=== PATIENT | female | born 1985 | race Caucasian/White ===

== ENCOUNTER 2019-02-18 12:29 | Emergency (ER) | payer BC ==
--- OUTSIDE RECORDS SUMMARY | 2019-02-18 12:48 | XMS REPORT | Continuity of Care Document ---
:1985 External Reference #:[id number] Author Name Allyssa Sam PA Address [address] [facility] [place] [address] Care Team Providers Name Role Phone Allyssa Sam PA Care Team Information Obstetrics Gyn Unavailable Payers Date Identification Numbers Payment Provider Subscriber Policy Number: [id number] [employer] Ppo Nya Kearns PayID: [id number] [address] [address] [place] [id number] Effective: 2010 Policy Number: [id number] [employer] Nya Kearns Expires: 2015 PayID: [id number] [address] [address] [place] [phone] Problems Active Problems Provider Date Generalized anxiety disorder Jonatan Mclean DO Onset: 01/11/2012 Vitamin D deficiency Jonatan Mclean DO Onset: 01/09/2011 Intrinsic asthma without status asthmaticus Jonatan Mclean DO Onset: 01/09 Migraine with typical aura Jonatan Mclean DO Onset: 01/09/2011 Peptic reflux disease Jonatan Mclean DO Onset: 01/04/2015 Mild intermittent asthma Jonatan Mclean DO Onset: 12/07/2016 Mild intermittent asthma, uncomplicated Jonatan Mclean DO Onset: 2015 Family History Date Family Member(s) Observation Comments Father Unsure Mother Anxiety Mother TMJ Disorder Social History Type Date Description Comments Sex Unknown Marital Status Lives With Daughter 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 Tobacco Use Start: Unknown End: Former Cigarette Smoker 1-5 Unknown Cigarettes Daily ETOH Use Occasionally consumes alcohol Tobacco Use Start: Unknown End: Patient is a former smoker quit February 2015 Unknown Allergies, Adverse Reactions, Alerts Active Allergies Reaction Severity Comments Date Environmental 01/04/2015 IV Contrast 08/30/2015 Adhesives Very bad rash 07/02/2017 Inactive Allergies NKDA 11/25/2014 Medications Active Medications SIG Qnty Indications Ordering Date Provider Albuterol Sulfate HFA 2 puffs every 8.500gm J06.9 Ray Rios, 2018 4-6 hours as DO 108(90Base) mcg/Act needed for Aerosol cough, sob, wheezing Amoxicillin/Clavulanat 1 by mouth twice 14tabs J01.90 Ray Rios, e Potassium a day x 10 days DO 875-125mg Tablets Silenor One tablet by 30tabs F41.1 Ray Rios, 11/17/2018 3mg Tablets mouth once daily DO Paroxetine HCL take 1 tablet by 30tabs Ray Rios, 10/29/2018 20mg mouth daily DO Tablets Hydroxyzine HCL 1 by mouth every 90tabs Ray Rios, 10/01/2018 25mg 6-8 hours as DO Tablets needed Alprazolam take 1 tablet by 30tabs F41.1 Ray Rios, 09/03/2018 0.25mg Tablets mouth twice a DO day if needed for anxiety maximum daily dose of 2 Vitamin D3 Adult 2 by mouth every Ray Rios, 07/25/2018 Gummies day DO 1000Unit Chewtabs Hydrocortisone apply to rectal 120gm K64.8 Josue, 10/09/2016 Acetate/Pramoxine area three times Jonatan DO 2.5-1% a day x 14 days Cream Citracal Calcium+D 1-2 at night 60tabs Josue, 02/28/2016 Slow Release before sleep Jonatan, DO 313-37-100lj-mg-Unit Tablets ER 24HR Flintstones Complete 2 by mouth every OTC Josue, 09/19/2015 60mg day Jonatan, DO Chewtabs Vitamin B12 1 by mouth every Josue, 09/19/2015 500mcg day Jonatan, DO Tablets Tylenol Extra Strength one by mouth q6 Unknown hrs. as needed 500mg Tablets mdd - 3 grams per day History Medications Paroxetine HCL 1 by mouth every 30tabs Rios, 10/06/2018 - 20mg Tablets day Ray, DO 10/06/2018 Hydroxyzine HCL 1 by mouth every 60tabs Rios, 10/01/2018 - 25mg Tablets 6-8 hours as Ray, DO 10/01/2018 needed Sertraline HCL 2 by mouth every 60tabs F41.1 Rios, 09/17/2018 - 50mg Tablets day Ray, DO 10/29/2018 Sertraline HCL 2 by mouth every 30tabs F41.1 Rios, 09/03/2018 - 25mg Tablets day Ray, DO 09/17/2018 Duloxetine HCL 1 by mouth every 30caps F41.1 Rios, 08/07/2018 - 30mg Caps DR hai Bell, DO 08/09/2018 Part Buspirone HCL 1 tablet by 60tabs F41.1 Rios, 08/07/2018 - 7.5mg Tablets mouth twice a Ray, DO 09/17/2018 day as needed Azithromycin 2 by mouth on 6tabs R05 Digiovanblessing, 06/03/2018 - 250mg Tablets day 1 and 1 by LORENA Tian 06/08/2018 mouth day 2-5 Benzonatate 1 by mouth every 60caps R05 Digiovanna, 06/03/2018 - 200mg Capsules 8 hours as LORENA Tian 06/13/2018 needed for cough, may cause drowsiness Azithromycin 2 tablets by 6tabs J06.9 Rios, 07/26/2017 - 250mg Tablets mouth on day 1 Ray, DO 07/31/2017 then 1 tablet on days 2-5 Proair HFA 2 puffs every 8.500gm J06.9 Rios, 07/26/2017 - 108(90Base) mcg/Act 4-6 hours as DO Ray 01/21/2019 Aerosol needed for cough, sob, wheezing Benzonatate 1 by mouth three 30caps J06.9 Josue, 07/02/2017 - 200mg Capsules times a day Jonatan, DO 06/03/2018 Cymbalta 2 by mouth every 60caps F43.23 Josue, 04/17/2017 - 30mg Caps DR Yun Cheung, DO 06/03/2018 Meloxicam 1 by mouth every 30tabs M25.54 Josue, 10/09/2016 - 15mg Tablets day 2 DO Jonatan 04/17/2017 Cymbalta 1 by mouth every 90caps F43.23 Josue, 08/29/2016 - 30mg Caps DR Yun day DO Jonatan 04/17/2017 Benzonatate 1 by mouth every 30caps R05 Digiovanna, 07/31/2016 - 200mg Capsules 8 hours as Asmita, [employer] 08/29/2016 needed for cough, may cause drowsiness Escitalopram Oxalate 1 by mouth every 90tabs F43.23 Josue, 02/28/2016 - 20mg day DO Jonatan 08/29/2016 Tablets Nystatin-Triamcinolone apply to area 60gm R21 Josue, 11/28/2015 - twice a day X 4 DO Jonatan 02/28/2016 440316-5.1Unit/GM-% Cream Weeks Pepcid 1 by mouth two 90tabs Josue, 09/19/2015 - 20mg Tablets time daily. DO Jonatan 02/28/2016 Escitalopram Oxalate 1 by mouth every 90tabs F43.23 Josue, 09/19/2015 - 10mg day DO Jonatan 02/28/2016 Tablets Methylprednisolone Take 4MG Daily Lety, 06/22/2015 - 4mg Tablets Until 09/22/14. Venkata, 09/19/2015 Then Drop To 2MG MD X 2 Weeks Then Stop. Gabapentin take one capsule 30caps Josue, 05/20/2015 - 300mg Capsules by mouth once at DO Jonatan 06/09/2015 bedtime Ibuprofen 1 by mouth three 90tabs Josue, 05/16/2015 - 800mg Tablets times a day with DO Jonatan 06/09/2015 food Prednisone 1 by mouth twice 14tabs 729.5 Josue, 04/28/2015 - 20mg Tablets a day DO Jonatan 05/16/2015 Furosemide 1 by mouth every 30tabs 782.3 Josue, 04/21/2015 - 20mg Tablets day DO Jonatan 05/31/2015 Klor-Con M20 1 by g-tube 30tabs 782.3 Josue, 04/21/2015 - 20Meq Tablets ER twice a day Jonatan, DO 05/31/2015 Azithromycin 1 by mouth every 7tabs 466.0 Josue, 09/14/2014 - 500mg Tablets day Jonatan, DO 11/25/2014 Robitussin ac 2 teaspoon by QS 466.0 Josue, 09/14/2014 - mouth every 4 Jonatan, DO 11/25/2014 hours as needed X 5 days Benzonatate 1 by mouth three 30caps Josue, 08/23/2014 - 200mg Capsules times a day Jonatan, DO 11/25/2014 Ventolin HFA 2 puffs by mouth 1units Josue, 08/23/2014 - 108mcg/Act Aerosol every 4 hours as Jonatan DO 02/28/2016 needed Sumatriptan Succinate 1 qd prn 10tabs Josue, 09/28/2013 - 100mg migraine repeat Jonatan DO 11/25/2014 Tablets 2 hrs prn [facility] Vitamin D 1 po qd 30caps Josue, 01/09/2011 - 2000Unit Capsules Jonatan, DO 06/09/2015 Metoprolol 1 by mouth twice Unknown - 25mg a day 02/28/2016 Omeprazole 1 by mouth Unknown - 10mg Capsules DR morning and 06/03/2018 night Immunizations CPT Code Status Date Vaccine Lot # [id number] Given 05/16/2018 Afluria Or Fluvirin Flu Vac Intramuscular 24040 Given 02/25/2014 Tdap (Adacel) Ages 7 And Above Only Vital Signs Date Vital Result Comment 01/21/2019 3:46pm Body Temperature 98.6 F Weight 251.00 lb Heart Rate 80 /min BP Systolic 132 mmHg BP Diastolic 72 mmHg Respiratory Rate 18 /min Height 67.5 inches 5'7.50" O2 % BldC Oximetry 95 % BMI (Body Mass Index) 38.7 kg/m2 11/17/2018 8:01am Weight 255.00 lb Heart Rate 68 /min BP Systolic 128 mmHg BP Diastolic 80 mmHg Respiratory Rate 18 /min Height 67.5 inches 5'7.50" BMI (Body Mass Index) 39.3 kg/m2 10/29/2018 7:58am Weight 248.00 lb Heart Rate 72 /min BP Systolic 124 mmHg BP Diastolic 80 mmHg Respiratory Rate 18 /min Height 67.5 inches 5'7.50" BMI (Body Mass Index) 38.3 kg/m2 10/01/2018 8:03am Weight 252.00 lb Heart Rate 72 /min BP Systolic 118 mmHg BP Diastolic 80 mmHg Respiratory Rate 18 /min Height 67.5 inches 5'7.50" BMI (Body Mass Index) 38.9 kg/m2 09/17/2018 9:35am Weight 248.00 lb Heart Rate 72 /min BP Systolic 132 mmHg BP Diastolic 72 mmHg Respiratory Rate 18 /min Height 67.5 inches 5'7.50" BMI (Body Mass Index) 38.3 kg/m2 09/03/2018 10:31am Weight 250.00 lb Heart Rate 84 /min BP Systolic 130 mmHg BP Diastolic 70 mmHg Respiratory Rate 18 /min Height 67.5 inches 5'7.50" BMI (Body Mass Index) 38.6 kg/m2 08/07/2018 11:04am Weight 250.00 lb BP Systolic 130 mmHg BP Diastolic 80 mmHg Height 67.5 inches 5'7.50" BMI (Body Mass Index) 38.6 kg/m2 07/25/2018 2:43pm Body Temperature 98.6 F Weight 245.00 lb Heart Rate 72 /min BP Systolic 130 mmHg BP Diastolic 72 mmHg Respiratory Rate 18 /min Height 67.5 inches 5'7.50" BMI (Body Mass Index) 37.8 kg/m2 06/03/2018 11:27am Body Temperature 99.0 F tympanic Weight 242.19 lb Heart Rate 80 /min BP Systolic 134 mmHg BP Diastolic 80 mmHg Respiratory Rate 18 /min Height 66.75 inches 5'6.75" (08/29/16) O2 % BldC Oximetry 96 % Room Air BMI (Body Mass Index) 38.2 kg/m2 07/26/2017 3:17pm Body Temperature 98.6 F Weight 227.00 lb Heart Rate 84 /min BP Systolic 124 mmHg BP Diastolic 80 mmHg Respiratory Rate 18 /min Height 66.75 inches 5'6.75" (08/29/16) O2 % BldC Oximetry 97 % BMI (Body Mass Index) 35.8 kg/m2 07/02/2017 9:23am Body Temperature 97.6 F Weight 228.38 lb Heart Rate 80 /min BP Systolic 112 mmHg BP Diastolic 76 mmHg Respiratory Rate 18 /min Height 66.75 inches 5'6.75" (08/29/16) O2 % BldC Oximetry 97 % On room air BMI (Body Mass Index) 36.0 kg/m2 04/17/2017 9:40am Weight 231.00 lb Heart Rate 76 /min BP Systolic 120 mmHg BP Diastolic 80 mmHg Respiratory Rate 18 /min Height 66.75 inches 5'6.75" (08/29/16) BMI (Body Mass Index) 36.4 kg/m2 10/09/2016 7:58am Weight 237.00 lb Heart Rate 78 /min BP Systolic 114 mmHg BP Diastolic 70 mmHg Respiratory Rate 18 /min Height 66.75 inches 5'6.75" (08/29/16) BMI (Body Mass Index) 37.4 kg/m2 08/29/2016 11:25am Weight 236.38 lb Heart Rate 78 /min 80 Reg BP Systolic 110 mmHg BP Diastolic 70 mmHg BP Systolic Recheck 110 mmHg BP Diastolic Recheck 72 mmHg Respiratory Rate 18 /min Height 66.75 inches 5'6.75" (08/29/16) BMI (Body Mass Index) 37.3 kg/m2 07/31/2016 1:33pm Body Temperature 99.1 F Weight 247.00 lb Heart Rate 98 /min BP Systolic 122 mmHg BP Diastolic 74 mmHg Respiratory Rate 18 /min O2 % BldC Oximetry 98 % Ra 02/28/2016 3:22pm Weight 271.00 lb Heart Rate 78 /min BP Systolic 130 mmHg BP Diastolic 80 mmHg Respiratory Rate 18 /min 11/28/2015 2:47pm Weight 304.00 lb Heart Rate 78 /min BP Systolic 118 mmHg BP Diastolic 82 mmHg Respiratory Rate 18 /min 09/19/2015 8:09am Weight 336.00 lb Heart Rate 66 /min 72 Reg BP Systolic 140 mmHg BP Diastolic 90 mmHg BP Systolic Recheck 130 mmHg BP Diastolic Recheck 82 mmHg Respiratory Rate 24 /min 08/30/2015 9:05am Weight 362.00 lb Heart Rate 72 /min 72 Reg BP Systolic 112 mmHg Lower LEFT Arm BP Diastolic 62 mmHg Lower LEFT Arm BP Systolic Recheck 124 mmHg BP Diastolic Recheck 80 mmHg Respiratory Rate 24 /min Height 67.75 inches 5'7.75" BMI (Body Mass Index) 55.4 kg/m2 08/05/2015 9:27am Weight 358.00 lb Heart Rate 72 /min 72 Reg BP Systolic 118 mmHg BP Diastolic 62 mmHg BP Systolic Recheck 126 mmHg BP Diastolic Recheck 78 mmHg Height 68 inches 5'8" (04/2015) BMI (Body Mass Index) 54.4 kg/m2 07/08/2015 8:44am Weight 353.00 lb Heart Rate 88 /min BP Systolic 128 mmHg L/LG BP Diastolic 80 mmHg L/LG Respiratory Rate 18 /min Height 68 inches 5'8" BMI (Body Mass Index) 53.7 kg/m2 05/31/2015 9:29am Weight 344.00 lb Heart Rate 78 /min BP Systolic 130 mmHg BP Diastolic 82 mmHg Respiratory Rate 18 /min 05/05/2015 9:00am Weight 348.00 lb Heart Rate 72 /min BP Systolic 130 mmHg BP Diastolic 90 mmHg Respiratory Rate 18 /min Height 68 inches 5'8" BMI (Body Mass Index) 52.9 kg/m2 04/28/2015 10:05am Weight 339.00 lb 04/21/2015 3:05pm Weight 346.00 lb Heart Rate 78 /min 72 Reg BP Systolic 130 mmHg BP Diastolic 80 mmHg Respiratory Rate 24 /min Height 67.75 inches 5'7.75" BMI (Body Mass Index) 53.0 kg/m2 04/05/2015 9:46am Weight 348.00 lb Heart Rate 72 /min BP Systolic 110 mmHg BP Diastolic 70 mmHg Respiratory Rate 24 /min Height 67.75 inches 5'7.75" BMI (Body Mass Index) 53.3 kg/m2 01/10/2015 1:24pm Weight 346.00 lb Heart Rate 96 /min BP Systolic 126 mmHg BP Diastolic 68 mmHg Respiratory Rate 30 /min Height 67.5 inches 5'7.50" BMI (Body Mass Index) 53.4 kg/m2 11/25/2014 1:07pm Body Temperature 98.5 F Weight 350.00 lb Heart Rate 76 /min BP Systolic 126 mmHg BP Diastolic 72 mmHg Respiratory Rate 20 /min Height 67.5 inches 5'7.50" BMI (Body Mass Index) 54.0 kg/m2 09/14/2014 3:59pm Body Temperature 98.8 F Weight 341.00 lb Heart Rate 66 /min BP Systolic 112 mmHg BP Diastolic 80 mmHg Respiratory Rate 24 /min Height 67.5 inches 5'7.50" O2 % BldC Oximetry 97 % Ra BMI (Body Mass Index) 52.6 kg/m2 08/23/2014 9:45am Body Temperature 98.7 F Weight 320.00 lb Per PT Heart Rate 66 /min BP Systolic 120 mmHg BP Diastolic 80 mmHg Respiratory Rate 24 /min Height 67.75 inches 5'7.75" O2 % BldC Oximetry 97 % Ra 05/03/2014 10:37am Weight 334.00 lb Height 67.75 inches 5'7.75" 05/03/2014 10:38am BP Systolic 128 mmHg BP Diastolic 72 mmHg 05/03/2014 10:38am Heart Rate 78 /min 72 Reg BP Systolic 128 mmHg BP Diastolic 72 mmHg Respiratory Rate 18 /min 04/28/2014 2:41pm Weight 331.00 lb Heart Rate 92 /min BP Systolic 140 mmHg BP Diastolic 80 mmHg Respiratory Rate 18 /min Height 68 inches 5'8" Done On 04/28/14 02/25/2014 9:56am Body Temperature 98.2 F Weight 326.00 lb Heart Rate 90 /min BP Systolic 144 mmHg BP Diastolic 86 mmHg Respiratory Rate 18 /min 02/04/2014 9:49am Weight 332.00 lb Heart Rate 70 /min BP Systolic 134 mmHg BP Diastolic 80 mmHg Respiratory Rate 18 /min Height 67 inches 5'7" 02/01/2014 9:52am Body Temperature 98.9 F Weight 336.00 lb Heart Rate 76 /min BP Systolic 148 mmHg BP Diastolic 78 mmHg Respiratory Rate 18 /min Height 67 inches 5'7" 01/28/2013 3:02pm Weight 334.00 lb Heart Rate 70 /min BP Systolic 138 mmHg BP Diastolic 78 mmHg Respiratory Rate 18 /min 02/25/2012 10:42am Body Temperature 97.8 F Weight 343.00 lb Heart Rate 104 /min BP Systolic 138 mmHg BP Diastolic 76 mmHg Respiratory Rate 19 /min Height 67.25 inches 5'7.25"/ O2 % BldC Oximetry 96 % 01/11/2012 4:20pm BP Systolic 130 mmHg BP Diastolic 80 mmHg 01/11/2012 4:20pm Weight 342.00 lb Heart Rate 78 /min BP Systolic 138 mmHg BP Diastolic 90 mmHg Respiratory Rate 24 /min Height 67.25 inches 5'7.25" 11/28/2011 9:09am Body Temperature 98.5 F Weight 330.00 lb Heart Rate 74 /min BP Systolic 130 mmHg BP Diastolic 80 mmHg Respiratory Rate 18 /min Height 68.25 inches 5'8.25" O2 % BldC Oximetry 95 % 11/26/2011 1:14pm Body Temperature 98.7 F Weight 334.00 lb Heart Rate 106 /min BP Systolic 134 mmHg BP Diastolic 82 mmHg Respiratory Rate 22 /min Height 68.25 inches 5'8.25" O2 % BldC Oximetry 94 % 10/24/2011 2:28pm Body Temperature 98.8 F Weight 342.00 lb Heart Rate 90 /min BP Systolic 136 mmHg BP Diastolic 76 mmHg Respiratory Rate 20 /min Height 67.75 inches 5'7.75" 07/04/2011 4:25pm Weight 324.00 lb Heart Rate 87 /min BP Systolic 152 mmHg BP Diastolic 94 mmHg Respiratory Rate 19 /min Height 67.75 inches 5'7.75" 04/23/2011 10:20am Body Temperature 98.9 F Weight 321.00 lb Heart Rate 91 /min BP Systolic 112 mmHg BP Diastolic 86 mmHg Respiratory Rate 18 /min Height 67.75 inches 5'7.75" 04/16/2011 10:19am Body Temperature 98.7 F Weight 328.00 lb Heart Rate 72 /min BP Systolic 140 mmHg BP Diastolic 90 mmHg Height 67.75 inches 5'7.75" 03/29/11 O2 % BldC Oximetry 96 % 03/29/2011 4:07pm Weight 330.00 lb Heart Rate 84 /min BP Systolic 142 mmHg BP Diastolic 62 mmHg Respiratory Rate 18 /min Height 67.75 inches 5'7.75" 01/09/2011 3:39pm BP Systolic 132 mmHg BP Diastolic 82 mmHg 01/09/2011 3:39pm Weight 323.00 lb Heart Rate 78 /min 80 Reg BP Systolic 148 mmHg BP Diastolic 82 mmHg Respiratory Rate 24 /min Height 67.5 inches 5'7.50" 11/11/2009 10:50am Weight 339.00 lb Heart Rate 86 /min BP Systolic 136 mmHg BP Diastolic 78 mmHg Respiratory Rate 17 /min 10/05/2009 11:32am Body Temperature 98.6 F Weight 335.00 lb Heart Rate 96 /min BP Systolic 124 mmHg BP Diastolic 88 mmHg Respiratory Rate 30 /min O2 % BldC Oximetry 95 % On Room Air. 08/02/2009 1:32pm Weight 335.00 lb Heart Rate 90 /min BP Systolic 122 mmHg BP Diastolic 90 mmHg Respiratory Rate 17 /min 07/12/2009 1:01pm Body Temperature 98.0 F Weight 324.00 lb Heart Rate 102 /min BP Systolic 138 mmHg RIGHT BP Diastolic 96 mmHg RIGHT Respiratory Rate 16 /min O2 % BldC Oximetry 95 % rm air 03/14/2009 2:08pm Weight 345.00 lb Heart Rate 78 /min BP Systolic 118 mmHg BP Diastolic 80 mmHg Respiratory Rate 18 /min 03/03/2009 9:34am Body Temperature 98.7 F Weight 340.00 lb Heart Rate 76 /min BP Systolic 134 mmHg RIGHT BP Diastolic 82 mmHg RIGHT Respiratory Rate 16 /min 12/24/2008 9:37am Body Temperature 98.0 F Weight 346.00 lb Heart Rate 84 /min BP Systolic 128 mmHg BP Diastolic 86 mmHg Respiratory Rate 24 /min 12/17/2008 1:55pm Weight 346.00 lb Heart Rate 78 /min BP Systolic 142 mmHg BP Diastolic 70 mmHg Respiratory Rate 18 /min Height 67.5 inches 5'7.50" Results Test Date Facility Test Result H/L Range Note Laboratory test finding 09/03/2018 [facility] TSH 1.75 uIU/mL 0.35-4.94 CBC with Auto Diff-fcmg 09/03/2018 [facility] WBC 7.8 K/uL 4.1-11.0 RBC 5.60 M/uL High 4.00-5.40 Hemoglobin 17.1 gm/dL High 12.0-16.0 Hematocrit 51.5 % High 36.0-47.0 MCV 92.1 fL 80.0-97.0 MCH 30.6 pg 27.0-32.0 MCHC 33.2 g/dL 32.0-36.0 RDW 13.3 % 11.5-14.5 PLT Count 160 K/ul 140-400 MPV 8.4 FL 7.1-10.7 Neutrophil 69.7 % 35.0-75.0 Lymphocyte 21.2 % 16.0-52.0 Monocyte 7.1 % 2.0-10.0 Eosinophil 1.3 % 0.0-5.0 Basophil 0.7 % 0.0-4.0 Abs Neutrophils 5.4 K/uL 2.1-8.0 Abs Lymphocytes 1.7 K/uL 0.8-5.5 Abs Monocytes 0.6 K/uL 0.1-1.0 Abs Eosinophils 0.1 K/uL 0.0-0.5 Abs Basophils 0.1 K/uL 0.0-0.3 Ua RFX Micro & 05/11/2018 [facility] Urine Color YELLOW Yellow 1 Culture II (315)- - Urine Clarity CLEAR Clear Urine Glucose - Dipstick NEGATIVE mg/dL Negative Urine Bilirubin - Dipstick NEGATIVE Negative Urine Ketone NEGATIVE mg/dL Negative Urine Specific [place] 1.010 N 1.010-1.030 Urine Blood NEGATIVE Negative Urine PH 6.0 Low 6.5-7.5 Urine Protein - Dipstick NEGATIVE mg/dL Negative Urine Urobilinogen - Dipstick 0.2 E.U./dL N 0.2-1.0 Urine Nitrite - Dipstick NEGATIVE Negative Urine Leuk Esterase NEGATIVE Negative Source: URINE, CLEAN CAT <SEE NOTE> 2 CBS W/Automated Diff 05/11/2018 [facility] White Blood 5.9 K/uL N 3.1-10.7 (315)- - Count Red Blood Count 4.68 M/uL N 3.90-5.40 Hemoglobin 14.4 gm/dL N 11.6-15.8 Hematocrit 42.7 % N 36.0-46.1 Mean Cell Volume 91.2 fl N 80.9-99.0 Mean Corpuscular HGB 30.8 pg N 25.9-32.7 Mean Corpuscular HGB Conc 33.7 g/dL N 30.8-34.3 Platelet Count 349 K/uL N 155-360 Red Cell Distri Width SD 40.7 fl N 3-47 Red Cell Distri Width %CV 12.5 % N 11.7-14.4 Mean Platelet Volume 8.8 fL Low 8.9-12.4 Neut% 61.8 % N 40.4-72.8 Lymph % 25.8 % N 20.0-42.0 Yancey % 9.3 % N 4.3-13.2 Eo% 2.4 % N 0.0-6.6 Bas% 0.7 % N 0.0-1.1 Neut# 3.68 K/uL N 1.8-7.0 Lymph # 1.53 K/uL N 1.0-4.0 Yancey # 0.55 K/uL N 0.3-0.9 Eos # 0.14 K/uL N 0.0-0.5 Baso # 0.04 K/uL N 0.0-0.1 Comprehensive Metabolic 05/11/2018 [facility] Glucose 94 mg/dL N 74-106 Panel (315)- - BUN 13 mg/dL N 7-18 Creatinine 0.6 mg/dL N 0.6-1.3 Glom Filtration Rate, Estimate >60 mL/min >60 If >60 mL/min >60 3 BUN/Creat 21.6 ratio Sodium 142 mmol/L N 136-145 Potassium 4.5 mmol/L N 3.5-5.1 Chloride 108 mmol/L High 98-107 Carbon Dioxide 24 mmol/L N 21-32 Anion Gap 10 mEq/L N 8-16 Calcium 8.4 mg/dL Low 8.5-10.1 Total Protein 7.1 g/dL N 6.4-8.2 Albumin 3.3 g/dL Low 3.4-5.0 Globulin 3.8 g/dL N 1.9-4.3 Alb/Glob 0.9 ratio Bilirubin,Total 0.3 mg/dL N 0.2-1.0 Sgot/Ast 15 U/L N 15-37 SGPT/Alt 21 U/L N 12-78 Alkaline Phosphatase 88 U/L N 45-117 Laboratory test finding 05/11/2018 [facility] Lipase 130 U/L N 56-289 (315)- - HCG,Serum (Qualitative) NEGATIVE (Negative) 4 [facility]L 4.1-11.0 RBC 4.48 M/uL 4.00-5.40 Hemoglobin 14.0 gm/dL 12.0-16.0 Hematocrit 40.9 % 36.0-47.0 MCV 91.2 fL 80.0-97.0 MCH 31.2 pg 27.0-32.0 MCHC 34.2 g/dL 32.0-36.0 RDW 13.0 % 11.5-14.5 PLT Count 340 K/ul 140-400 MPV 7.4 FL 7.1-10.7 Neutrophil 59.4 % 35.0-75.0 Lymphocyte 27.3 % 16.0-52.0 Monocyte 9.9 % 2.0-10.0 Eosinophil 2.6 % 0.0-5.0 Basophil 0.8 % 0.0-4.0 Abs Neutrophils 3.3 K/uL 2.1-8.0 Abs Lymphocytes 1.5 K/uL 0.8-5.5 Abs Monocytes 0.6 K/uL 0.1-1.0 Abs Eosinophils 0.1 K/uL 0.0-0.5 Abs Basophils 0.0 K/uL 0.0-0.3 Laboratory test 07/02/2017 [facility] Monospot Negative Negative finding C.Difficile 04/30/2017 [facility] C.Difficile (SEE NOTE) 5, 6 Cytotoxin (B) (315)- - Cytotoxin (B) CBC With Auto 04/23/2017 [facility] WBC 5.7 K/uL 4.1-11.0 Diff RBC 4.88 M/uL 4.00-5.40 Hemoglobin 14.8 gm/dL 12.0-16.0 Hematocrit 44.8 % 36.0-47.0 MCV 91.8 fL 80.0-97.0 MCH 30.3 pg 27.0-32.0 MCHC 33.1 g/dL 32.0-36.0 RDW 13.0 % 11.5-14.5 PLT Count 394 K/ul 140-400 Neutrophil 63.7 % 35.0-75.0 Lymphocyte 23.5 % 16.0-52.0 Monocyte 9.4 % 2.0-10.0 Eosinophil 2.5 % 0.0-5.0 Basophil 0.9 % 0.0-4.0 Abs Neutrophils 3.6 K/uL 2.1-8.0 Abs Lymphocytes 1.3 K/uL 0.8-5.5 Abs Monocytes 0.5 K/uL 0.1-1.0 Abs Eosinophils 0.1 K/uL 0.0-0.5 Abs Basophils 0.1 K/uL 0.0-0.3 Comprehensive Met Panel-FCMG 04/23/2017 [facility] Sodium 140 mmol/L 135- 146 7 Potassium 4.5 mmol/L 3.5-5.2 Chloride# 107 mmol/L 97-110 8 Carbon Dioxide 23 mmol/L Low 24-34 Glucose 67 mg/dL Low 70-105 BUN 10 mg/dL 6-26 Creatinine 0.6 mg/dL 0.5-1.4 Calcium 9.2 mg/dL 8.5-10.2 Total Protein 6.6 g/dL 6.0-8.0 Albumin 4.0 g/dL 3.6-4.9 Globulin 2.6 g/dL 2.0-3.5 A/G Ratio 1.5 Ratio 1.0-2.2 Total Bilirubin 0.4 mg/dL 0.1-1.3 Alkaline Phosphatase 93 U/L 24-140 Alt 24 U/L 3-42 Ast 15 U/L 8-42 Dawn Egfr >60 >60 9 Non Dawn Egfr >60 >60 10 Anion Gap 10 mmol/L 7-16 11 Laboratory test 04/16/2017 [facility] Lipase 133 U/L N 73-393 12, 13 finding (315)- - Comprehensive 04/16/2017 [facility] Glucose 91 mg/dL N 74-106 Metabolic Panel (315)- - BUN 13 mg/dL N 7-18 Creatinine 0.9 mg/dL N 0.6-1.3 Glom Filtration Rate, Estimate >60 mL/min >60 If >60 mL/min >60 14 BUN/Creat 14.4 ratio Sodium 144 mmol/L N 136-145 Potassium 4.5 mmol/L N 3.5-5.1 Chloride 109 mmol/L High 98-107 Carbon Dioxide 30 mmol/L N 21-32 Anion Gap 5 mEq/L Low 8-16 Calcium 8.3 mg/dL Low 8.5-10.1 Total Protein 6.0 g/dL Low 6.4-8.2 Albumin 2.9 g/dL Low 3.4-5.0 Globulin 3.1 g/dL N 1.9-4.3 Alb/Glob 0.9 ratio Bilirubin,Total 0.4 mg/dL N 0.2-1.0 Sgot/Ast 222 U/L High 15-37 SGPT/Alt 137 U/L High 12-78 Alkaline Phosphatase 131 U/L High 45-117 CBC 04/16/2017 [facility] White Blood Count 6.3 K/uL N 3.1-10.7 (315)- - Red Blood Count 3.99 M/uL N 3.90-5.40 Hemoglobin 12.3 gm/dL N 11.6-15.8 Hematocrit 37.7 % 36.0-46.1 Mean Cell Volume 94.5 fl N 80.9-99.0 Mean Corpuscular HGB 30.8 pg N 25.9-32.7 Mean Corpuscular HGB Conc 32.6 g/dL N 30.8-34.3 Platelet Count 294 K/uL N 150-400 Red Cell Distri Width %CV 13.1 % N 11.7-14.4 Mean Platelet Volume 9.8 fL N 8.9-12.4 CBC 04/15/2017 [facility] White Blood Count 8.3 K/uL N 3.1-10.7 (315)- - Red Blood Count 4.60 M/uL N 3.90-5.40 Hemoglobin 14.2 gm/dL N 11.6-15.8 Hematocrit 42.1 % N 36.0-46.1 Mean Cell Volume 91.5 fl N 80.9-99.0 Mean Corpuscular HGB 30.9 pg N 25.9-32.7 Mean Corpuscular HGB Conc 33.7 g/dL N 30.8-34.3 Platelet Count 327 K/uL N 150-400 Red Cell Distri Width %CV 13.0 % N 11.7-14.4 Mean Platelet Volume 9.8 fL N 8.9-12.4 Basic Metabolic Panel 04/15/2017 [facility] Glucose 115 mg/dL High 74-106 (315)- - BUN 9 mg/dL N 7-18 Creatinine 0.8 mg/dL N 0.6-1.3 Glom Filtration Rate, Estimate >60 mL/min >60 If >60 mL/min >60 15 BUN/Creat 11.2 ratio Sodium 141 mmol/L N 136-145 Potassium 4.4 mmol/L N 3.5-5.1 Chloride 107 mmol/L N 98-107 Carbon Dioxide 27 mmol/L N 21-32 Anion Gap 7 mEq/L Low 8-16 Calcium 8.8 mg/dL N 8.5-10.1 CBS W/Automated Diff 04/14/2017 [facility] White Blood 6.4 K/uL N 3.1-10.7 16 (315)- - Count Red Blood Count 4.91 M/uL N 3.90-5.40 Hemoglobin 15.2 gm/dL N 11.6-15.8 Hematocrit 44.6 % N 36.0-46.1 Mean Cell Volume 90.8 fl N 80.9-99.0 Mean Corpuscular HGB 31.0 pg N 25.9-32.7 Mean Corpuscular HGB Conc 34.1 g/dL N 30.8-34.3 Platelet Count 345 K/uL N 150-400 Red Cell Distri Width SD 42.0 fl N 3-47 Red Cell Distri Width %CV 13.0 % N 11.7-14.4 Mean Platelet Volume 9.3 fL N 8.9-12.4 Neut% 66.0 % N 40.4-72.8 Lymph % 23.2 % N 20.0-42.0 Yancey % 7.8 % N 4.3-13.2 Eo% 2.5 % N 0.0-6.6 Bas% 0.5 % N 0.0-1.1 Neut# 4.22 K/uL N 1.8-7.0 Lymph # 1.48 K/uL N 1.0-4.0 Yancey # 0.50 K/uL N 0.3-0.9 Eos # 0.16 K/uL N 0.0-0.5 Baso # 0.03 K/uL N 0.0-0.1 Ua RFX Micro & 04/14/2017 [facility] Urine Color YELLOW Yellow Culture II (315)- - Urine Clarity CLEAR Clear Urine Glucose - Dipstick NEGATIVE mg/dL Negative Urine Bilirubin - Dipstick NEGATIVE Negative Urine Ketone TRACE mg/dL High Negative Urine Specific [place] >=1.030 N 1.010-1.030 Urine Blood NEGATIVE Negative Urine PH 6.0 Low 6.5-7.5 Urine Protein - Dipstick NEGATIVE mg/dL Negative Urine Urobilinogen - Dipstick 0.2 E.U./dL N 0.2-1.0 Urine Nitrite - Dipstick NEGATIVE Negative Urine Leuk Esterase NEGATIVE Negative Source: URINE, CLEAN CAT <SEE NOTE> 17 Comprehensive Metabolic 04/14/2017 [facility] Glucose 84 mg/dL N 74-106 Panel (315)- - BUN 12 mg/dL N 7-18 Creatinine 0.8 mg/dL N 0.6-1.3 Glom Filtration Rate, Estimate >60 mL/min >60 If >60 mL/min >60 18 BUN/Creat 15.0 ratio Sodium 141 mmol/L N 136-145 Potassium 4.1 mmol/L N 3.5-5.1 Chloride 109 mmol/L High 98-107 Carbon Dioxide 26 mmol/L N 21-32 Anion Gap 6 mEq/L Low 8-16 Calcium 8.9 mg/dL N 8.5-10.1 Total Protein 7.2 g/dL N 6.4-8.2 Albumin 3.4 g/dL N 3.4-5.0 Globulin 3.8 g/dL N 1.9-4.3 Alb/Glob 0.9 ratio Bilirubin,Total 0.5 mg/dL N 0.2-1.0 Sgot/Ast 12 U/L Low 15-37 19 SGPT/Alt 21 U/L N 12-78 Alkaline Phosphatase 110 U/L N 45-117 Laboratory test finding 04/14/2017 [facility] Lipase 155 U/L N 73-393 (315)- - HCG,Serum (Qualitative) NEGATIVE (Negative) 20 Laboratory test 01/28/2017 [facility] Treponema Negative Negative 21 finding (315)- - Antibody U[place] Hepatitis 01/28/2017 [facility] Hepatitis A Negative Negative Evaluation (315)- - Antibody IgM HBsAg Screen [Ref Lab] Negative Negative Hepatitis B Core IgM Negative Negative Signal/Cutoff ratio < 0.1 s/corat 0.0-0.9 22 Laboratory test finding 09/07/2016 [facility] Magnesium 2.0 mg/dL 1.5-2.7 Phosphorus 4.1 mg/dL 2.5-5.0 Vitamin B12 651 pg/mL 180-914 Folate >24.0 ng/ml 5.9-24.8 Iron Panel 09/07/2016 [facility] Iron, Total 73 g/dL 50-170 Transferrin 276.0 mg/dL 203.0-362.0 Tibc (calc) 386 g/dL 261-478 % Iron Saturation 18.9 % 13.0-45.0 Laboratory test finding 09/07/2016 [facility] Ferritin 122.8 ng/ml 11.0- 306.0 Hemoglobin A1c 5.4 % 4.1-5.9 Comprehensive Metabolic (CMP) 09/07/2016 [facility] Sodium 136 mmol/L 134- 142 Potassium 4.3 mmol/L 3.5-5.2 Chloride 105 mmol/L 97-109 Carbon Dioxide 27 mmol/L 24-34 Glucose 84 mg/dL 70-105 BUN 19 mg/dL 6-26 Creatinine 0.7 mg/dL 0.5-1.4 Calcium 9.4 mg/dL 8.5-10.2 Total Protein 7.0 g/dL 6.0-8.0 Albumin 4.1 g/dL 3.6-4.9 Globulin 2.9 g/dL 2.0-3.5 A/G Ratio 1.4 Ratio 1.0-2.2 Total Bilirubin 0.3 mg/dL 0.1-1.3 Alkaline Phosphatase 88 U/L 24-140 Alt 15 U/L 3-42 Ast 15 U/L 8-42 Anion Gap 8 mmol/L 6-14 Dawn Egfr >60 >60 23 Non Dawn Egfr >60 >60 24 CBC With Auto Diff 09/07/2016 [facility] WBC 8.1 K/uL 4.1-11.0 RBC 5.05 M/uL 4.00-5.40 Hemoglobin 15.0 gm/dL 12.0-16.0 Hematocrit 45.5 % 36.0-47.0 MCV 90.1 fL 80.0-97.0 MCH 29.7 pg 27.0-32.0 MCHC 32.9 g/dL 32.0-36.0 RDW 13.3 % 11.5-14.5 PLT Count 371 K/ul 140-400 Neutrophil 71.9 % 35.0-75.0 Lymphocyte 19.2 % 16.0-52.0 Monocyte 6.4 % 2.0-10.0 Eosinophil 1.7 % 0.0-5.0 Basophil 0.8 % 0.0-4.0 Abs Neutrophils 5.8 K/uL 2.1-8.0 Abs Lymphocytes 1.5 K/uL 0.8-5.5 Abs Monocytes 0.5 K/uL 0.1-1.0 Abs Eosinophils 0.1 K/uL 0.0-0.5 Abs Basophils 0.1 K/uL 0.0-0.3 Laboratory test finding 07/06/2016 [facility] Ferritin 91.9 ng/ml 11.0- 306.0 Iron Panel 07/06/2016 [facility] Iron, Total 84 g/dL 50-170 Transferrin 249.8 mg/dL 203.0-362.0 Tibc (calc) 350 g/dL 261-478 % Iron Saturation 24.0 % 13.0-45.0 Laboratory test finding 07/06/2016 [facility] Vitamin B12 549 pg/mL 180- 914 CBC With Auto Diff 02/28/2016 [facility] WBC 6.5 K/uL 4.1-11.0 RBC 4.87 M/uL 4.00-5.40 Hemoglobin 14.4 gm/dL 12.0-16.0 Hematocrit 42.7 % 36.0-47.0 MCV 87.7 fL 80.0-97.0 MCH 29.6 pg 27.0-32.0 MCHC 33.8 g/dL 32.0-36.0 RDW 13.4 % 11.5-14.5 PLT Count 341 K/ul 140-400 Neutrophil 66.0 % 35.0-75.0 Lymphocyte 22.9 % 16.0-52.0 Monocyte 6.5 % 2.0-10.0 Eosinophil 3.7 % 0.0-5.0 Basophil 0.9 % 0.0-4.0 Abs Neutrophils 4.3 K/uL 2.1-8.0 Abs Lymphocytes 1.5 K/uL 0.8-5.5 Abs Monocytes 0.4 K/uL 0.1-1.0 Abs Eosinophils 0.2 K/uL 0.0-0.5 Abs Basophils 0.1 K/uL 0.0-0.3 Comprehensive Metabolic (CMP) 02/28/2016 [facility] Sodium 136 mmol/L 134- 142 Potassium 4.1 mmol/L 3.5-5.2 Chloride 104 mmol/L 97-109 Carbon Dioxide 26 mmol/L 24-34 Glucose 89 mg/dL 70-105 BUN 13 mg/dL 6-26 Creatinine 0.6 mg/dL 0.5-1.4 Calcium 9.3 mg/dL 8.5-10.2 Total Protein 6.8 g/dL 6.0-8.0 Albumin 4.0 g/dL 3.6-4.9 Globulin 2.8 g/dL 2.0-3.5 A/G Ratio 1.4 Ratio 1.0-2.2 Total Bilirubin 0.4 mg/dL 0.1-1.3 Alkaline Phosphatase 94 U/L 24-140 Alt 15 U/L 3-42 Ast 14 U/L 8-42 Anion Gap 10 mmol/L 6-14 Dawn Egfr >60 >60 25 Non Dawn Egfr >60 >60 26 Laboratory test finding 02/28/2016 [facility] Ferritin 78.0 ng/ml 11.0- 306.0 Hemoglobin A1c 5.5 % 4.1-5.9 Iron Panel 02/28/2016 [facility] Iron, Total 37 g/dL Low 50-170 Transferrin 271.6 mg/dL 203.0-362.0 Tibc (calc) 380 g/dL 261-478 % Iron Saturation 9.7 % Low 13.0-45.0 Laboratory test finding 02/28/2016 [facility] Magnesium 1.9 mg/dL 1.5-2.7 Phosphorus 3.8 mg/dL 2.5-5.0 Vitamin B12 346 pg/mL 180-914 Folate >23.5 ng/ml 5.9-24.8 Laboratory test finding 11/28/2015 [facility] Magnesium 1.9 mg/dL 1.5-2.7 Phosphorus 3.6 mg/dL 2.5-5.0 Vitamin B12 745 pg/mL 180-914 Iron Panel 11/28/2015 [facility] Iron, Total 50 g/dL 50-170 Transferrin 236.5 mg/dL 203.0-362.0 Tibc (calc) 331 g/dL 261-478 % Iron Saturation 15.1 % 13.0-45.0 Laboratory test finding 11/28/2015 [facility] Ferritin 84.7 ng/ml 11.0- 306.0 Hemoglobin A1c 5.6 % 4.1-5.9 Comprehensive Metabolic (CMP) 11/28/2015 [facility] Sodium 137 mmol/L 134- 142 Potassium 4.2 mmol/L 3.5-5.2 Chloride 106 mmol/L 97-109 Carbon Dioxide 24 mmol/L 24-34 Glucose 84 mg/dL 70-105 BUN 10 mg/dL 6-26 Creatinine 0.6 mg/dL 0.5-1.4 Calcium 9.5 mg/dL 8.5-10.2 Total Protein 6.8 g/dL 6.0-8.0 Albumin 4.0 g/dL 3.6-4.9 Globulin 2.8 g/dL 2.0-3.5 A/G Ratio 1.4 Ratio 1.0-2.2 Total Bilirubin 0.3 mg/dL 0.1-1.3 Alkaline Phosphatase 82 U/L 24-140 Alt 18 U/L 3-42 Ast 16 U/L 8-42 Anion Gap 11 mmol/L 6-14 Dawn Egfr >60 >60 27 Non Dawn Egfr >60 >60 28 CBC With Auto Diff 11/28/2015 [facility] WBC 6.0 K/uL 4.1-11.0 RBC 4.86 M/uL 4.00-5.40 Hemoglobin 14.1 gm/dL 12.0-16.0 Hematocrit 43.2 % 36.0-47.0 MCV 89.0 fL 80.0-97.0 MCH 29.0 pg 27.0-32.0 MCHC 32.6 g/dL 32.0-36.0 RDW 14.1 % 11.5-14.5 PLT Count 329 K/ul 140-400 Neutrophil 66.8 % 35.0-75.0 Lymphocyte 20.1 % 16.0-52.0 Monocyte 8.9 % 2.0-10.0 Eosinophil 3.5 % 0.0-5.0 Basophil 0.7 % 0.0-4.0 Abs Neutrophils 4.0 K/uL 2.1-8.0 Abs Lymphocytes 1.2 K/uL 0.8-5.5 Abmon 0.5 K/uL 0.1-1.0 Abs Eosinophils 0.2 K/uL 0.0-0.5 Abs Basophils 0.0 K/uL 0.0-0.3 Folate RBC 11/28/2015 [facility] SR HCT 43.2 % [phone] Folate RBC 1047 ng/mL 29 CBC With Auto Diff 09/28/2015 [facility] WBC 5.9 K/uL 4.1-11.0 RBC 4.71 M/uL 4.00-5.40 Hemoglobin 13.6 gm/dL 12.0-16.0 Hematocrit 41.7 % 36.0-47.0 MCV 88.5 fL 80.0-97.0 MCH 28.9 pg 27.0-32.0 MCHC 32.7 g/dL 32.0-36.0 RDW 13.8 % 11.5-14.5 PLT Count 319 K/ul 140-400 Neutrophil 70.6 % 35.0-75.0 Lymphocyte 15.8 % Low 16.0-52.0 Monocyte 9.7 % 2.0-10.0 Eosinophil 3.3 % 0.0-5.0 Basophil 0.6 % 0.0-4.0 Abs Neutrophils 4.1 K/uL 2.1-8.0 Abs Lymphocytes 0.9 K/uL 0.8-5.5 Abmon 0.6 K/uL 0.1-1.0 Abs Eosinophils 0.2 K/uL 0.0-0.5 Abs Basophils 0.0 K/uL 0.0-0.3 Comprehensive Metabolic (CMP) 09/28/2015 [facility] Sodium 137 mmol/L 134- 142 Potassium 4.1 mmol/L 3.5-5.2 Chloride 106 mmol/L 97-109 Carbon Dioxide 24 mmol/L 24-34 Glucose 83 mg/dL 70-105 BUN 9 mg/dL 6-26 Creatinine 0.6 mg/dL 0.5-1.4 Calcium 9.2 mg/dL 8.5-10.2 Total Protein 6.5 g/dL 6.0-8.0 Albumin 3.7 g/dL 3.6-4.9 Globulin 2.8 g/dL 2.0-3.5 A/G Ratio 1.3 Ratio 1.0-2.2 Total Bilirubin 0.4 mg/dL 0.1-1.3 Alkaline Phosphatase 69 U/L 24-140 Alt 23 U/L 3-42 Ast 24 U/L 8-42 Anion Gap 11 mmol/L 6-14 Dawn Egfr >60 >60 30 Non Dawn Egfr >60 >60 31 Laboratory test finding 09/28/2015 [facility] Ferritin 131.1 ng/ml 11.0- 306.0 Hemoglobin A1c 5.7 % 4.1-5.9 Iron Panel 09/28/2015 [facility] Iron, Total 44 g/dL Low 50-170 Transferrin 229.2 mg/dL 203.0-362.0 Tibc (calc) 321 g/dL 261-478 % Iron Saturation 13.7 % 13.0-45.0 Laboratory test finding 09/28/2015 [facility] Magnesium 1.7 mg/dL 1.5-2.7 Phosphorus 2.8 mg/dL 2.5-5.0 Vitamin B12 876 pg/mL 180-914 Vit D,25 Hydroxy 31 ng/mL 31-100 Laboratory test finding 09/28/2015 [facility] Vitamin B1 Whole BLD 100 nmol/L 32 Folate RBC -RL 09/28/2015 [facility] SR HCT 41.7 % Folate RBC See Note 33 Laboratory test finding 07/08/2015 [facility] Hep. B Core Igm NEGATIVE (Neg ) 34, 35 Hep B S AB Quant NEGATIVE mIU/mL 36 Hepatitis B S Ag NEGATIVE (Neg) 37 Laboratory test finding 07/08/2015 [facility] Esr 4 mm/hr 0-20 Hepatic Panel (LFT) 07/08/2015 [facility] Total Protein 6.5 g/dL 6.0-8.0 Albumin 3.7 g/dL 3.6-4.9 Total Bilirubin 0.5 mg/dL 0.1-1.3 Direct Bilirubin 0.1 mg/dL 0.0-0.4 Alkaline Phosphatase 65 U/L 24-140 Alt 15 U/L 3-42 Ast 10 U/L 8-42 Laboratory test finding 07/08/2015 [facility] Creatinine 0.6 mg/dL 0.5-1.4 CBC With Auto Diff 07/08/2015 [facility] WBC 12.8 K/uL High 4.1-11.0 RBC 5.05 M/uL 4.00-5.40 Hemoglobin 14.6 gm/dL 12.0-16.0 Hematocrit 43.9 % 36.0-47.0 MCV 86.9 fL 80.0-97.0 MCH 29.0 pg 27.0-32.0 MCHC 33.3 g/dL 32.0-36.0 RDW 14.0 % 11.5-14.5 PLT Count 305 K/ul 140-400 Neutrophil 83.0 % High 35.0-75.0 Lymphocyte 9.8 % Low 16.0-52.0 Monocyte 5.9 % 2.0-10.0 Eosinophil 0.9 % 0.0-5.0 Basophil 0.4 % 0.0-4.0 Abs Neutrophils 10.6 K/uL High 2.1-8.0 Abs Lymphocytes 1.3 K/uL 0.8-5.5 Abmon 0.8 K/uL 0.1-1.0 Abs Eosinophils 0.1 K/uL 0.0-0.5 Abs Basophils 0.0 K/uL 0.0-0.3 Laboratory test 07/08/2015 [facility] Hepatitis C Virus NONREACTIVE Nonreactive finding Antibody CRP (C-Reactive) 0.87 mg/dL High 0.00-0.75 Laboratory test finding 05/18/2015 [facility] Esr 20 mm/hr 0-20 CRP (C-Reactive) 2.43 mg/dL High 0.00-0.75 Laboratory test finding 04/28/2015 [facility] Esr 28 mm/hr High 0-20 CRP (C-Reactive) 3.73 mg/dL High 0.00-0.75 Rheumatoid Factor <10.0 IU/mL 0.0-10.0 [place] Screen Neg Neg CPK 50 U/L 12-199 Laboratory test finding 04/28/2015 [facility] Ang Convert Enz BLD 48 U/L 38 Hlab27 Negative 39 Comprehensive Metabolic (CMP) 11/25/2014 [facility] Sodium 140 mmol/L 134- 142 Potassium 4.6 mmol/L 3.5-5.2 Chloride 107 mmol/L 97-109 Carbon Dioxide 24 mmol/L 24-34 Glucose 157 mg/dL High 70-105 BUN 13 mg/dL 6-26 Creatinine 0.7 mg/dL 0.5-1.4 Calcium 9.1 mg/dL 8.5-10.2 Total Protein 6.4 g/dL 6.0-8.0 Albumin 3.8 g/dL 3.6-4.9 Globulin 2.6 g/dL 2.0-3.5 A/G Ratio 1.5 Ratio 1.0-2.2 Total Bilirubin 0.3 mg/dL 0.1-1.3 Alkaline Phosphatase 100 U/L 24-140 Alt 13 U/L 3-42 Ast 12 U/L 8-42 Anion Gap 14 mmol/L 6-14 Dawn Egfr >60 >60 40 Non Dawn Egfr >60 >60 41 CBC With Auto Diff 11/25/2014 [facility] WBC 11.4 K/uL High 4.1-11.0 RBC 4.84 M/uL 4.00-5.40 Hemoglobin 14.0 gm/dL 12.0-16.0 Hematocrit 42.6 % 36.0-47.0 MCV 88.1 fL 80.0-97.0 MCH 29.0 pg 27.0-32.0 MCHC 32.9 g/dL 32.0-36.0 RDW 13.8 % 11.5-14.5 PLT Count 362 K/ul 140-400 Neutrophil 71.0 % 35.0-75.0 Lymphocyte 20.8 % 16.0-52.0 Monocyte 5.8 % 2.0-10.0 Eosinophil 1.6 % 0.0-5.0 Basophil 0.8 % 0.0-4.0 Abs Neutrophils 8.1 K/uL High 2.1-8.0 Abs Lymphocytes 2.4 K/uL 0.8-5.5 Abmon 0.7 K/uL 0.1-1.0 Abs Eosinophils 0.2 K/uL 0.0-0.5 Abs Basophils 0.1 K/uL 0.0-0.3 Laboratory test finding 11/25/2014 [facility] Enteric Pathogen Cul SEE NOTE 42, 43 C Diff Toxin B/PCR-RL 11/25/2014 [facility] Specimen Description STOOL C Diff Toxin B NEGATIVE (Neg) 027 Nap1 B1 NEGATIVE (Neg) Comment NOTE: IF REFLEX <SEE NOTE> 44 Laboratory test 11/25/2014 [facility] Giard/Cryptosp Exam SEE NOTE 45 finding Laboratory test 11/25/2014 [facility] Ova And Parasites SPECIMEN 46 finding [phone] DESCRI> Laboratory test 11/25/2014 [facility] Yersinia Culture SPECIMEN 47 finding [phone] DESCRI> Laboratory test 11/25/2014 [facility] Vibrio Culture SPECIMEN 48 finding [phone] DESCRI> Laboratory test 05/03/2014 N2N/CCD Import % Baso. 1.3 % 0.0-2 finding .0 % Eos. 2.2 % 0.0-4.0 % Lymph 25 % 20-44 % Yancey 6.4 % 2.0-10.0 % Kimberley 65 % 50-70 A/G Ratio 1.3 ratio Low 1.6-2.2 Absolute Baso. 0.1 K/ul 0.0-0.3 Absolute Eos. 0.2 K/ul 0.0-0.5 Absolute Lymph. 2.1 K/ul 0.8-4.8 Absolute Yancey. 0.5 K/ul 0.1-1.0 Absolute Kimberley. 5.40 K/ul 2.05-7.63 Albumin 4.2 g/dL 3.5-5.0 Alk. Phos. 114.0 U/L 30.0-126.0 Alt 19.0 U/L 9.0-52.0 Anion Gap 8.0 mmol/L Low 10.0-20.0 Ast 16.0 U/L 14.0-36.0 BUN 11.0 mg/dL 7.0-18.0 BUN/Creat Ratio 13.8 ratio 12.0-20.0 Calcium 9.4 mg/dL 8.7-10.5 Chloride 106.0 mmol/L 98.0-107.0 Co2 24.0 mmol/L 22.0-30.0 Creatinine-Serum 0.8 mg/dL 0.7-1.2 Globulin 3.3 g/dL 2.7-4.3 Glucose 99.0 mg/dL 75.0-110.0 HCT 46.4 % 37.0-51.0 HGB 15.4 Gm/dl 12.0-16.0 MCH 28.5 pg 26.0-32.0 MCHC 33.3 g/dL 31.0-36.0 MCV 85.6 Fl 80.0-97.0 MPV 6.2 fL 6.0-10.0 PLT 458 K/ul High 140-440 Potasium 4.7 mmol/L 3.6-5.0 RBC 5.4 M/ul 4.2-6.3 RDW 12.3 % 11.5-14.5 Sodium 138.0 mmil/L 137.0-145.0 TSH 2.05 uIU/ml 0.50-6.00 Total Bilirubin 0.5 mg/dL 0.2-1.3 Total Protein 7.5 g/dL 6.3-8.2 Vitamin D 21.2 ng/mL Low 30.0-100.0 WBC 8.3 K/ul 4.1-10.9 eGFR 93.4 mi/minper1.73 49 Lipid Panel 05/03/2014 [employer] Import Chol/HDL Ratio 3.7 ratio Cholesterol 183.0 mg/dL 50.0-199.0 HDL 49.0 mg/dL 45.0-86.0 LDL, Calculated 110.8 mg/dL 20.0-129.0 Triglycerides 116.0 mg/dL 30.0-150.0 vLDL 23.2 ng/dL Laboratory test 02/04/2014 N2N/FIXO Import Jade species Negative [ Negative] finding Gardnerella vaginalis Negative [Negative] Trichomonas vaginalis Negative [Negative] Laboratory test 02/01/2014 N2N/[facility] Import Culture Urine See Note 50 finding Laboratory test 12/28/2013 /[employer] Import Stool Occult Negative Negative finding Blood-Single Spec Alb/Glob 0.9 ratio Albumin 3.4 g/dL Low 3.5-5.0 Alkaline Phosphatase 119 U/L 50-136 Anion Gap 11 mEq/L 8-16 BUN 9 mg/dL 5-23 BUN/Creat 11.2 ratio Bilirubin,Direct < 0.1 mg/dL Low 0.1-0.4 Bilirubin,Indirect 0.1 mg/dL 0.0-0.9 Bilirubin,Total 0.2 mg/dL 0.2-1.2 Calcium 8.7 mg/dL 8.5-10.1 Carbon Dioxide 26 mEq/L 18-29 Chloride 108 mmol/L High 98-107 Creatinine 0.8 mg/dL 0.5-1.4 Globulin 3.8 g/dL 1.9-4.3 Glom Filtration Rate, Estimate >60 mL/min >60 Glucose 90 mg/dL 76-115 If >60 mL/min >60 51 Lipase 98 U/L 28-380 Potassium 3.9 mmol/L 3.5-5.1 SGPT/Alt 25 U/L Low 30-65 Sgot/Ast 10 U/L Low 16-40 Sodium 141 mmol/L 136-145 Total Protein 7.2 g/dL 6.3-8.0 CBS W/Automated Diff 12/28/2013 /FIXO Import Bas% 0.4 % 0.0-1.1 Baso # 0.04 K/uL 0.0-0.1 Eo% 2.1 % 0.0-6.6 Eos # 0.21 K/uL 0.0-0.5 Hematocrit 43.1 % 36.0-46.1 Hemoglobin 14.5 gm/dL 11.6-15.8 Lymph # 3.04 K/uL 0.8-3.4 Lymph % 30.7 % 17.0-46.1 Mean Cell Volume 86.7 fl 80.9-99.0 Mean Corpuscular HGB 29.2 pg 25.9-32.7 Mean Corpuscular HGB Conc 33.6 g/dL 30.8-34.3 Mean Platelet Volume 9.4 fL 8.9-12.4 Yancey # 0.86 K/uL 0.3-0.9 Yancey % 8.7 % 4.3-13.2 Neut# 5.74 K/uL 1.0-7.0 Neut% 58.1 % 40.4-72.8 Platelet Count 360 K/uL 155-360 Red Blood Count 4.97 M/uL 3.90-5.40 Red Cell Distri Width %CV 13.6 % 11.7-14.4 Red Cell Distri Width SD 42.1 fl 3-47 White Blood Count 9.9 K/uL 3.1-10.7 Laboratory test 12/28/2013 N2N/CCD Import Urine HCG Negative Negative 52 finding (Qualitative) Urine Screen 12/28/2013 N2N/CCD Import Urine Bilirubin - Negative Negative Dipstick Urine Blood Negative Negative Urine Clarity Clear Clear Urine Color Yellow Yellow Urine Glucose - Dipstick Negative mg/dL Negative Urine Ketone Negative mg/dL Negative Urine Leuk Esterase Negative Negative Urine Nitrite - Dipstick Negative Negative Urine PH 6.0 Low 6.5-7.5 Urine Protein - Dipstick Negative mg/dL Negative Urine Specific [place] >=1.030 1.010-1.030 Urine Urobilinogen - Dipstick 0.2 E.U./dL 0.2-1.0 Laboratory test finding 12/28/2013 N2N/CCD Import Smear For WBC'S See Note 53 Laboratory test finding 05/20/2013 N2N/CCD Import Anion Gap 14 mEq/L 8- 16 BUN 14 mg/dL 5-23 BUN/Creat 15.5 ratio Calcium 9.0 mg/dL 8.5-10.1 Carbon Dioxide 25 mEq/L 18-29 Chloride 105 mmol/L 98-107 Creatinine 0.9 mg/dL 0.5-1.4 Glom Filtration Rate, Estimate >60 mL/min >60 Glucose 93 mg/dL 76-115 HCG Serum, Qualitative Negative If >60 mL/min >60 54 Potassium 4.1 mmol/L 3.5-5.1 Sodium 140 mmol/L 136-145 CBS W/Automated Diff 05/20/2013 N2N/CCD Import Bas% 0.6 % 0.0-1.1 Baso # 0.06 K/uL 0.0-0.1 Eo% 1.8 % 0.0-6.6 Eos # 0.18 K/uL 0.0-0.5 Hematocrit 43.2 % 36.0-46.1 Hemoglobin 14.2 gm/dL 11.6-15.8 Lymph # 2.46 K/uL 0.8-3.4 Lymph % 24.5 % 17.0-46.1 Mean Cell Volume 86.1 fl 80.9-99.0 Mean Corpuscular HGB 28.3 pg 25.9-32.7 Mean Corpuscular HGB Conc 32.9 g/dL 30.8-34.3 Mean Platelet Volume 9.1 fL 8.9-12.4 Yancey # 0.68 K/uL 0.3-0.9 Yancey % 6.8 % 4.3-13.2 Neut# 6.66 K/uL 1.0-7.0 Neut% 66.3 % 40.4-72.8 Platelet Count 432 K/uL High 155-360 Red Blood Count 5.02 M/uL 3.90-5.40 Red Cell Distri Width %CV 13.8 % 11.7-14.4 Red Cell Distri Width SD 42.3 fl 3-47 White Blood Count 10.0 K/uL 3.1-10.7 Laboratory test 05/06/2013 N2N/CCD Import Dna Probe N. Gono See Note 55 finding + C. Trach. Chlamydia/GC Allie 05/06/2013 N2N/CCD Import Chlamydia Negative Negative Trachomatis, Allie Neisseria Gonorrhoeae, Allie Negative Negative Please note: See Note 56 Laboratory test finding 05/06/2013 N2N/CCD Import Alb/Glob 0.9 ratio Albumin 3.5 g/dL 3.5-5.0 Alkaline Phosphatase 107 U/L 50-136 Anion Gap 11 mEq/L 8-16 BUN 10 mg/dL 5-23 BUN/Creat 14.2 ratio Bilirubin,Direct < 0.1 mg/dL Low 0.1-0.4 Bilirubin,Indirect 0.1 mg/dL 0.0-0.9 Bilirubin,Total 0.2 mg/dL 0.2-1.2 Calcium 8.7 mg/dL 8.5-10.1 Carbon Dioxide 25 mEq/L 18-29 Chloride 106 mmol/L 98-107 Creatinine 0.7 mg/dL 0.5-1.4 Globulin 3.8 g/dL 1.9-4.3 Glom Filtration Rate, Estimate >60 mL/min >60 Glucose 87 mg/dL 76-115 HCG Serum, Qualitative Negative If >60 mL/min >60 57 Lipase 93 U/L 28-380 Potassium 3.9 mmol/L 3.5-5.1 SGPT/Alt 17 U/L Low 30-65 Sgot/Ast 12 U/L Low 16-40 Sodium 138 mmol/L 136-145 Total Protein 7.3 g/dL 6.3-8.0 Urine Amorph Sediment Small Negative Urine Bacteria Few None Seen Urine Bilirubin - Dipstick Negative Negative Urine Blood Large High Negative Urine Clarity Clear Clear Urine Color Yellow Yellow Urine Epithelial Cells Many None Seen /lpf 58 Urine Glucose - Dipstick Negative mg/dL Negative Urine Ketone Negative mg/dL Negative Urine Leuk Esterase Small High Negative Urine Nitrite - Dipstick Negative Negative Urine PH 6.0 Low 6.5-7.5 Urine Protein - Dipstick Negative mg/dL Negative Urine RBC 0-2 rbc/hpf 0-7 Urine Screen See Note 59 Urine Specific [place] >=1.030 1.010-1.030 Urine Uric Acid Crystals Few None Seen Urine Urobilinogen - Dipstick 0.2 E.U./dL 0.2-1.0 Urine WBC 2-5 wbc/hpf 0-7 CBS W/Automated Diff 05/06/2013 N2N/CCD Import Bas% 0.5 % 0.0-1.1 Baso # 0.05 K/uL 0.0-0.1 Eo% 2.0 % 0.0-6.6 Eos # 0.22 K/uL 0.0-0.5 Hematocrit 42.4 % 36.0-46.1 Hemoglobin 13.9 gm/dL 11.6-15.8 Lymph # 2.67 K/uL 0.8-3.4 Lymph % 24.7 % 17.0-46.1 Mean Cell Volume 86.5 fl 80.9-99.0 Mean Corpuscular HGB 28.4 pg 25.9-32.7 Mean Corpuscular HGB Conc 32.8 g/dL 30.8-34.3 Mean Platelet Volume 9.2 fL 8.9-12.4 Yancey # 0.77 K/uL 0.3-0.9 [place] % 7.1 % 4.3-13.2 Neut# 7.12 K/uL High 1.0-7.0 Neut% 65.7 % 40.4-72.8 Platelet Count 393 K/uL High 155-360 Red Blood Count 4.90 M/uL 3.90-5.40 Red Cell Distri Width %CV 13.6 % 11.7-14.4 Red Cell Distri Width SD 42.1 fl 3-47 White Blood Count 10.8 K/uL High 3.1-10.7 Laboratory test 05/04/2013 N2N/FIXO Import Endometrial See Note 60 finding Curettage Laboratory test 04/16/2013 N2N/FIXO Import Hematocrit 46.2 % High 36.0-46 finding .1 Hemoglobin 15.1 gm/dL 11.6-15.8 Mean Cell Volume 85.7 fl 80.9-99.0 Mean Corpuscular HGB 28.0 pg 25.9-32.7 Mean Corpuscular HGB Conc 32.7 g/dL 30.8-34.3 Mean Platelet Volume 9.4 fL 8.9-12.4 Platelet Count 427 K/uL High 155-360 Red Blood Count 5.39 M/uL 3.90-5.40 Red Cell Distri Width %CV 13.6 % 11.7-14.4 Thyroid Stim Hormone 2.23 uIU/mL 0.49-4.67 Vitamin D,25-Hydroxy 20.0 ng/mL Low 30.0-100.0 61 Von Willebrand Factor Activity 137 % 50-170 62 White Blood Count 11.2 K/uL High 3.1-10.7 Laboratory test 10/03/2012 [employer]FIXO Import Trichomonas Direct See Note 63 finding Exam Dna Probe N. Gono + 10/03/2012 [employer] Import Dna Probe For See Note 64 C. Trach. Chlamydia Trac. Dna Probe For N. Gonorrhoeae See Note 65 Urine Screen 10/02/2012 [employer]FIXO Import Urine Bilirubin - Negative Negative Dipstick Urine Blood Negative Negative Urine Clarity Clear Clear Urine Color Yellow Yellow Urine Glucose - Dipstick Negative mg/dL Negative Urine Ketone Negative mg/dL Negative Urine Leuk Esterase Negative Negative Urine Nitrite - Dipstick Negative Negative Urine PH 6.0 Low 6.5-7.5 Urine Protein - Dipstick Negative mg/dL Negative Urine Specific [place] >=1.030 1.010-1.030 Urine Urobilinogen - Dipstick 0.2 E.U./dL 0.2-1.0 Laboratory test 10/02/2012 N2N/CCD Import Urine HCG Negative Negative 66 finding (Qualitative) Hepatic Function 02/25/2012 N2N/CCD Import Albumin 3.2 g/dL Low 3.5-5.0 67 Alkaline Phosphatase 110 U/L 30-126 Alt 18 U/L 9-52 Ast 15 U/L 14-36 Total Bilirubin 0.4 mg/dL 0.2-1.3 Total Protein 6.5 g/dL 6.3-8.2 Laboratory test finding 01/11/2012 N2N/CCD Import Alb/Glob 1.1 ratio Albumin 4.1 g/dL 3.5-5.0 Alkaline Phosphatase 119 U/L 50-136 Anion Gap 14 mEq/L 8-16 BUN 13 mg/dL 5-23 BUN/Creat 18.5 ratio Bas% 0.4 % 0.0-1.1 Baso # 0.04 K/uL 0.0-0.1 Bilirubin,Total 0.5 mg/dL 0.2-1.2 Calcium 9.1 mg/dL 8.5-10.1 Carbon Dioxide 24 mEq/L 18-29 Chloride 104 mmol/L 98-107 Creatinine 0.7 mg/dL 0.5-1.4 Eo% 1.7 % 0.0-6.6 Eos # 0.16 K/uL 0.0-0.5 Free T4 1.02 ng/dL 0.71-1.85 Globulin 3.7 g/dL 1.9-4.3 Glom Filtration Rate, Estimate >60 mL/min >60 Glucose 78 mg/dL 76-115 Hematocrit 44.9 % 36.0-46.1 Hemoglobin 14.9 gm/dL 11.6-15.8 If >60 mL/min >60 68 Lymph # 2.85 K/uL 0.8-3.4 Lymph % 29.4 % 17.0-46.1 Mean Cell Volume 84.9 fl 80.9-99.0 Mean Corpuscular HGB 28.2 pg 25.9-32.7 Mean Corpuscular HGB Conc 33.2 g/dL 30.8-34.3 Mean Platelet Volume 9.6 fL 8.9-12.4 Yancey # 0.78 K/uL 0.3-0.9 [place] % 8.1 % 4.3-13.2 Neut# 5.85 K/uL 1.0-7.0 Neut% 60.4 % 40.4-72.8 Platelet Count 454 K/uL High 155-360 Potassium 4.4 mmol/L 3.5-5.1 Red Blood Count 5.29 M/uL 3.90-5.40 Red Cell Distri Width %CV 13.8 % 11.7-14.4 Red Cell Distri Width SD 42.0 fl 3-47 SGPT/Alt 20 U/L Low 30-65 Sgot/Ast 13 U/L Low 16-40 Sodium 138 mmol/L 136-145 Thyroid Stim Hormone 2.37 uIU/mL 0.49-4.67 Total Protein 7.8 g/dL 6.3-8.0 White Blood Count 9.7 K/uL 3.1-10.7 LDL Cholesterol Profile 01/11/2012 N2N/CCD Import Cholesterol 189 mg/dL 120-200 HDL Cholesterol 54 mg/dL 45-83 LDL-Cholesterol 116 mg/dL 62-129 Triglycerides 97 mg/dL 16-150 Vitamin B12 And 01/11/2012 N2N/CCD Import Folic Acid 16.0 ng/mL High 6.0- 15.4 Folate Vitamin B12 437 pg/mL 211-946 69 Laboratory test 04/24/2011 N2N/CCD Import C. Difficile Toxin See Note 70 finding A/B Cryptosporidium Specific Ag See Note 71 Giardia Specific Antigen See Note 72 Stool Culture 04/24/2011 N2N/CCD Import Shiga Toxin 1 See Note 73 Shiga Toxin 2 See Note 74 Stool Culture See Note 75 Laboratory test 04/23/2011 N2N/CCD Import Absolute 0.071 K/ul 0.0-0.3 finding Basophils Absolute Eosinophils 0.327 K/ul 0.0-0.5 Absolute Lymphocytes 2.39 K/ul 0.8-4.8 Absolute Monocytes 0.765 K/ul 0.1-1.0 Absolute Neutrophils 6.26 K/ul 2.05-7.63 Alb/Glob 1.1 ratio Albumin 3.7 g/dL 3.5-5.0 Alkaline Phosphatase 106 U/L 50-136 Anion Gap 13 mEq/L 8-16 BUN 10 mg/dL 5-23 BUN/Creat 12.5 ratio Basophil 0.7 % 0-2 Bilirubin,Direct 0.0 mg/dL Low 0.1-0.4 76 Bilirubin,Indirect 0.6 mg/dL 0.0-0.9 77 Bilirubin,Total 0.6 mg/dL 0.2-1.2 Calcium 9.3 mg/dL 8.5-10.1 Carbon Dioxide 30 mEq/L High 18-29 Chloride 100 mmol/L 98-107 Creatinine 0.8 mg/dL 0.5-1.4 Eosinophil 3.3 % 0-4 Globulin 3.5 gm/dL 1.9-4.3 Glom Filtration Rate, Estimate 91 mL/min >60 Glucose 99 mg/dL 76-115 Hematocrit 48.4 % 37.0-51.0 Hemoglobin 15.6 GM/dl 12.0-16.0 If 111 mL/min >60 78 Lymphocytes 24.3 % 20-44 MCH 27.7 pg 26.0-32.0 MCHC 32.3 g/dL 31.0-36.0 MCV 86 FL 80-97 Monocytes 7.8 % 2-10.0 Neutrophils 63.8 % 50-70 Platelet Count 404 K/ul 140-440 Potassium 4.3 mmol/L 3.5-5.1 RBC 5.63 M/ul 4.2-6.3 RDW 12.2 % 11.5-14.5 SGPT/Alt 19 U/L Low 30-65 Sgot/Ast 10 U/L Low 16-40 Sodium 139 mmol/L 136-145 Total Protein 7.2 g/dL 6.3-8.0 WBC 9.8 K/ul 4.1-10.9 Laboratory test finding 01/09/2011 N2N/CCD Import Alb/Glob 1.1 Albumin 4.0 g/dL 3.5-5.0 Alkaline Phosphatase 135 U/L 50-136 Anion Gap 14 mEq/L 8-16 BUN 19 mg/dL 5-23 BUN/Creat 23.7 Bas% 0.3 % 0.0-1.1 Baso # 0.04 K/uL 0.0-0.1 Bilirubin,Total 0.2 mg/dL 0.2-1.2 Calcium 9.6 mg/dL 8.5-10.1 Carbon Dioxide 27 mEq/L 21-32 Chloride 103 mEq/L 98-107 Creatinine 0.8 mg/dL 0.5-1.4 Eo% 2.1 % 0.0-6.6 Eos # 0.24 K/uL 0.0-0.5 Free T4 0.85 ng/dL 0.71-1.85 79 Globulin 3.6 gm/dL 1.9-4.3 Glom Filtration Rate, Estimate >60 mL/min >60 Glucose 76 mg/dL 76-115 Glycohemoglobin (A1c) 5.9 % 4.8-6.0 80 Hematocrit 45.2 % 36.0-46.1 Hemoglobin 14.8 gm/dL 11.6-15.8 If >60 mL/min >60 81 Lymph # 2.95 K/uL 0.8-3.4 Lymph % 25.7 % 17.0-46.1 Mean Cell Volume 86.4 fl 80.9-99.0 Mean Corpuscular HGB 28.3 pg 25.9-32.7 Mean Corpuscular HGB Conc 32.7 g/dL 30.8-34.3 Mean Platelet Volume 9.9 fL 8.9-12.4 Yancey # 0.90 K/uL 0.3-0.9 Yancey % 7.8 % 4.3-13.2 Neut# 7.35 K/uL High 1.0-7.0 Neut% 64.1 % 40.4-72.8 Platelet Count 405 K/uL High 155-360 Potassium 4.8 mEq/L 3.5-5.1 Red Blood Count 5.23 M/uL 3.90-5.40 Red Cell Distri Width %CV 14.0 % 11.7-14.4 Red Cell Distri Width SD 43.2 fl 3-47 SGPT/Alt 35 U/L 30-65 Sgot/Ast 10 U/L Low 16-40 Sodium 139 mEq/L 136-145 Thyroid Stim Hormone 1.78 uIU/mL 0.49-4.67 82 Total Protein 7.6 g/dL 6.3-8.0 White Blood Count 11.5 K/uL High 3.1-10.7 eAG 123 mg/dL LDL Cholesterol Profile 01/09/2011 N2N/CCD Import Cholesterol 174 mg/dL 120-200 HDL Cholesterol 50 mg/dL 45-96 LDL-Cholesterol 101 mg/dL 62-129 Triglycerides 115 mg/dL 0-150 Vitamin B12 And Folate 01/09/2011 N2N/CCD Import Folic Acid 13.4 ng/mL 6.0-15.4 Vitamin B12 403 pg/mL 208-964 Laboratory test finding 12/17/2008 N2N/CCD Import Surgical Pathology See Note 83 1 ABD PAIN ON LOWER LEFT SIDE 2 URINE, CLEAN CATCH 3 Note: Persistent reduction for 3 months or more in an eGFR <60 mL/min/1.73 m2 defines CKD. Patients with eGFR values >/=60 mL/min/1.73 m2 may also have CKD if evidence of persistent proteinuria is present. The original MDRD equation for estimated GFR is not valid for patients less than 18 years of age. Additional information may be found at [email or web address]. 4 Method: Quidel QuickVue One-Step Immunoassay 5 R19.7 6 7 Updated reference range on new analyzer 8 Updated reference range on new analyzer 9 Concerning GFR Guidelines for Americans: Normal function or mild renal disease, if clinically at risk: >/=60 mL/min Moderately decreased: 30-59 Severely decreased: 15-29 Renal failure: <15 10 Concerning GFR Guidelines: Normal function or mild renal disease, if clinically at risk: >/=60 mL/min Moderately decreased: 30-59 Severely decreased: 15-29 Renal failure: <15 Glomerular Filtration Rate (GFR) is estimated based on the MDRD equation, which assumes a steady state for creatinine as recommended by the National Kidney Disease Education Program in conjunction with the National Institutes of Health and the National Kidney Foundation. Clinical conditions in which it may be necessary to measure GFR by using clearance methods include extremes of age and body size, severe malnutrition or obesity, diseases of skeletal muscle, paraplegia or quadriplegia, vegetarian diet, rapidly changing kidney function, and calculation of the dose of potentially toxic drugs that are excreted by the kidneys. 11 Updated reference range on new analyzer 12 ACUTE APPENDICITIS [address] MCLEAN 14 Note: Persistent reduction for 3 months or more in an eGFR <60 mL/min/1.73 m2 defines CKD. Patients with eGFR values >/=60 mL/min/1.73 m2 may also have CKD if evidence of persistent proteinuria is present. The original MDRD equation for estimated GFR is not valid for patients less than 18 years of age. Additional information may be found at [email or web address]. 15 Note: Persistent reduction for 3 months or more in an eGFR <60 mL/min/1.73 m2 defines CKD. Patients with eGFR values >/=60 mL/min/1.73 m2 may also have CKD if evidence of persistent proteinuria is present. The original MDRD equation for estimated GFR is not valid for patients less than 18 years of age. Additional information may be found at [email or web address]. 16 RT SIDE ABD PAIN 17 URINE, CLEAN CATCH 18 Note: Persistent reduction for 3 months or more in an eGFR <60 mL/min/1.73 m2 defines CKD. Patients with eGFR values >/=60 mL/min/1.73 m2 may also have CKD if evidence of persistent proteinuria is present. The original MDRD equation for estimated GFR is not valid for patients less than 18 years of age. Additional information may be found at [email or web address]. 19 Values below the stated reference ranges of AST and ALT can be seen in normal populations. Clinical correlation is suggested. 20 Method: Quidel QuickVue One-Step Immunoassay 21 Z11.3 22 INFCE Result Units: s/co ratio Negative: < 0.8 Indeterminate: 0.8 - 0.9 Positive: > 0.9 The CDC recommends that a positive HCV antibody result be followed up with a HCV Nucleic Acid Amplification test (631496). Performed at: - [facility] [address] [id number] Wood Grinder: Meeta Briceño MD, Phone: [phone] Performed at: - [facility] [address] [id number] Wood Grinder: Valeri Reece MD, Phone: [phone] 23 Concerning GFR Guidelines for Americans: Normal function or mild renal disease, if clinically at risk: >/=60 mL/min Moderately decreased: 30-59 Severely decreased: 15-29 Renal failure: <15 24 Concerning GFR Guidelines: Normal function or mild renal disease, if clinically at risk: >/=60 mL/min Moderately decreased: 30-59 Severely decreased: 15-29 Renal failure: <15 Glomerular Filtration Rate (GFR) is estimated based on the MDRD equation, which assumes a steady state for creatinine as recommended by the National Kidney Disease Education Program in conjunction with the National Institutes of Health and the National Kidney Foundation. Clinical conditions in which it may be necessary to measure GFR by using clearance methods include extremes of age and body size, severe malnutrition or obesity, diseases of skeletal muscle, paraplegia or quadriplegia, vegetarian diet, rapidly changing kidney function, and calculation of the dose of potentially toxic drugs that are excreted by the kidneys. 25 Concerning GFR Guidelines for Americans: Normal function or mild renal disease, if clinically at risk: >/=60 mL/min Moderately decreased: 30-59 Severely decreased: 15-29 Renal failure: <15 26 Concerning GFR Guidelines: Normal function or mild renal disease, if clinically at risk: >/=60 mL/min Moderately decreased: 30-59 Severely decreased: 15-29 Renal failure: <15 Glomerular Filtration Rate (GFR) is estimated based on the MDRD equation, which assumes a steady state for creatinine as recommended by the National Kidney Disease Education Program in conjunction with the National Institutes of Health and the National Kidney Foundation. Clinical conditions in which it may be necessary to measure GFR by using clearance methods include extremes of age and body size, severe malnutrition or obesity, diseases of skeletal muscle, paraplegia or quadriplegia, vegetarian diet, rapidly changing kidney function, and calculation of the dose of potentially toxic drugs that are excreted by the kidneys. 27 Concerning GFR Guidelines for Americans: Normal function or mild renal disease, if clinically at risk: >/=60 mL/min Moderately decreased: 30-59 Severely decreased: 15-29 Renal failure: <15 28 Concerning GFR Guidelines: Normal function or mild renal disease, if clinically at risk: >/=60 mL/min Moderately decreased: 30-59 Severely decreased: 15-29 Renal failure: <15 Glomerular Filtration Rate (GFR) is estimated based on the MDRD equation, which assumes a steady state for creatinine as recommended by the National Kidney Disease Education Program in conjunction with the National Institutes of Health and the National Kidney Foundation. Clinical conditions in which it may be necessary to measure GFR by using clearance methods include extremes of age and body size, severe malnutrition or obesity, diseases of skeletal muscle, paraplegia or quadriplegia, vegetarian diet, rapidly changing kidney function, and calculation of the dose of potentially toxic drugs that are excreted by the kidneys. 29 Reference range: >=366 Performed by [facility], [address] [place] [id number] [email or web address], Amadeo Silverman MD, Lab. Director 30 Concerning GFR Guidelines for Americans: Normal function or mild renal disease, if clinically at risk: >/=60 mL/min Moderately decreased: 30-59 Severely decreased: 15-29 Renal failure: <15 31 Concerning GFR Guidelines: Normal function or mild renal disease, if clinically at risk: >/=60 mL/min Moderately decreased: 30-59 Severely decreased: 15-29 Renal failure: <15 Glomerular Filtration Rate (GFR) is estimated based on the MDRD equation, which assumes a steady state for creatinine as recommended by the National Kidney Disease Education Program in conjunction with the National Institutes of Health and the National Kidney Foundation. Clinical conditions in which it may be necessary to measure GFR by using clearance methods include extremes of age and body size, severe malnutrition or obesity, diseases of skeletal muscle, paraplegia or quadriplegia, vegetarian diet, rapidly changing kidney function, and calculation of the dose of potentially toxic drugs that are excreted by the kidneys. 32 Reference range: 70 to 180 INTERPRETIVE INFORMATION: Vitamin B1, Whole Blood This assay measures the concentration of thiamine diphosphate (TDP), the primary active form of vitamin B1. Approximately 90 percent of vitamin B1 present in whole blood is TDP. Thiamine and thiamine monophosphate, which comprise the remaining 10 percent, are not measured. Test developed and characteristics determined by [facility]. See Compliance Statement B: [facility]/ Performed by [facility], [address] [place], [place] [address] [address] [email or web address], Amadeo Silverman MD, Lab. Director Unless otherwise specified, testing performed by [facility] [place] [address] 33 See Note Reference range: >=366 RBC FOLATE result is greater than 1209 ng/mL Performed by [facility], [address] [facility] [place] [address] [email or web address], Amadeo Silverman MD, Lab. Director Unless otherwise specified, testing performed by [facility] [place] [address] 34 Fastin hours 35 Unless otherwise specified, testing performed by [facility] [address] [place] [id number] 36 A MINIMUM LEVEL OF 10 mIU/mL IS SUGGESTED TO INSURE COMPLETE IMMUNITY. IF NEGATIVE OR LESS THAN 10 mIU/mL AT 1 TO 2 MONTHS FOLLOWING THE FINAL DOSE OF THE HEP B VACCINE SERIES, REVACCINATION IS RECOMMENDED FOR SELECT PATIENT POPULATIONS (SEE MMWR 2011:60(7)-JUL 20, 2011). Unless otherwise specified, testing performed by [facility] [place] [address] 37 Unless otherwise specified, testing performed by [facility] [address] [place] [id number] 38 Reference range: 9 to 67 INTERPRETIVE INFORMATION: Angiotensin Converting Enzyme For related information, see [email or web address] Performed by [facility], [address] [place] [id number] [email or web address], Amadeo Silverman MD, Lab. Director Unless otherwise specified, testing performed by [facility] [address] [place] [phone] 39 Negative Reference range: NEGATIVE PERFORMED AT [facility], [address] [place] [address] Unless otherwise specified, testing performed by [facility] [address] [place] [id number] 40 Concerning GFR Guidelines for Americans: Normal function or mild renal disease, if clinically at risk: >/=60 mL/min Moderately decreased: 30-59 Severely decreased: 15-29 Renal failure: <15 41 Concerning GFR Guidelines: Normal function or mild renal disease, if clinically at risk: >/=60 mL/min Moderately decreased: 30-59 Severely decreased: 15-29 Renal failure: <15 Glomerular Filtration Rate (GFR) is estimated based on the MDRD equation, which assumes a steady state for creatinine as recommended by the National Kidney Disease Education Program in conjunction with the National Institutes of Health and the National Kidney Foundation. Clinical conditions in which it may be necessary to measure GFR by using clearance methods include extremes of age and body size, severe malnutrition or obesity, diseases of skeletal muscle, paraplegia or quadriplegia, vegetarian diet, rapidly changing kidney function, and calculation of the dose of potentially toxic drugs that are excreted by the kidneys. 42 Pt took specimen cup with and will drop off 43 SPECIMEN DESCRIPTION STOOL SPECIAL REQUESTS NONE CULTURE RESULTS NO SALMONELLA OR SHIGELLA ISOLATED. NEGATIVE FOR CAMPYLOBACTER COLI/JEJUNI BY IMMUNO ASSAY. NO SHIGA LIKE (ONESIMO) TOXIN DETECTED BY IMMUNOASS AY. NOTE: BIOCHEMICAL IDENTIFICATION SYSTEMS WERE SET UP ON SUSPECT COLONIES TO R/O PATHOGENS. REPORT STATUS FINAL 11/29/2014 Unless otherwise specified, testing performed by [facility] [place] [address] 44 NOTE: IF REFLEX CULTURE FOR KLEBSIELLA OXYTOCA IS CLINICALLY INDICATED, PLEASE CONTACT THE MICROBIOLOGY LABORATORY ([phone]) WITHIN 3 DAYS OF THIS REPORT. Unless otherwise specified, testing performed by [facility] [place] [address] 45 SPECIMEN DESCRIPTION STOOL SPECIAL REQUESTS NONE RESULT NEGATIVE FOR GIARDIA BY DFA NEGATIVE FOR CRYPTOSPORIDIUM BY DFA STOOL SPECIMEN SCREENED FOR THE PRESENCE OF GIARDIA LAMBLIA AND CRYPTOSPORIDIUM PARVUM ONLY. FOR PATIENTS FROM OR WITH A HISTORY OF TRAVEL TO A DEVELOPING COUNTRY, OR WHO HAVE PERSISTANT SYMPTOMS AND/OR ARE IMMUNOCOMPROMISED, CALL MICROBIOLOGY TO REQUEST THE REFLEX TEST OAP FOR A COMPREHENSIVE MICROSCOPIC EXAMINATION. SPECIMENS ARE SAVED IN FIXATIVE AND HELD FOR 7 DAYS FROM THE REPORT DATE TO ALLOW THESE TESTS TO BE ADDED ON. REPORT STATUS FINAL 11/26/2014 Unless otherwise specified, testing performed by [facility] [place] [address] 46 SPECIMEN DESCRIPTION STOOL SPECIAL REQUESTS NONE ADD ON PER AMBROSIO 1500 [id number] RESULT NO OVA AND PARASITES SEEN BY CONCENTRATE EXAM. NEGATIVE FOR GIARDIA BY DFA NEGATIVE FOR CRYPTOSPORIDIUM BY DFA REPORT STATUS FINAL 11/29/2014 47 SPECIMEN DESCRIPTION STOOL SPECIAL REQUESTS NONE ADD ON PER AMBROSIO 1500 [id number] CULTURE RESULTS NO YERSINIA ISOLATED. NOTE: BIOCHEMICAL IDENTIFICATION SYSTEMS WERE SET UP ON SUSPECT COLONIES TO R/O PATHOGENS. REPORT STATUS FINAL 11/29/2014 48 SPECIMEN DESCRIPTION STOOL SPECIAL REQUESTS NONE ADD ON PER AMBR[facility] 1500 [id number] CULTURE RESULTS NO VIBRIO ISOLATED NOTE: BIOCHEMICAL IDENTIFICATION SYSTEMS WERE SET UP ON SUSPECT COLONIES TO R/O PATHOGENS. REPORT STATUS FINAL 11/29/2014 49 For -Grenadian patients multiply result by 1.180 50 COLONY COUNT ! 10,000 - 20,000 CFU/ml Organism 1 ! MIXED URETHRAL CRISTIANA 51 Note: Persistent reduction for 3 months or more in an eGFR <60 mL/min/1.73 m2 defines CKD. Patients with eGFR values >/=60 mL/min/1.73 m2 may also have CKD if evidence of persistent proteinuria is present. The original MDRD equation for estimated GFR is not valid for patients less than 18 years of age. Additional information may be found at [email or web address]. 52 FIRST MORNING SPECIMENS GENERALLY CONTAIN THE HIGHEST CONCENTRATION OF HCG AND ARE RECOMMENDED FOR EARLY DETECTION OF . 53 NO SPECIMEN OBTAINED 54 Note: Persistent reduction for 3 months or more in an eGFR <60 mL/min/1.73 m2 defines CKD. Patients with eGFR values >/=60 mL/min/1.73 m2 may also have CKD if evidence of persistent proteinuria is present. The original MDRD equation for estimated GFR is not valid for patients less than 18 years of age. Additional information may be found at [email or web address]. 55 WRONG PROBE SENT 56 Acceptable specimens for this test are male urethral swab, endocervical swab and liquid based pap specimens, vaginal swabs in APTIMA transports and first void urine. See online Directory of Services for test number for rectal and pharyngeal specimens. Performed at: RN - [facility] [address] [id number] Wood Grinder: Meeta Briceño MD, Phone: [phone] 57 Note: Persistent reduction for 3 months or more in an eGFR <60 mL/min/1.73 m2 defines CKD. Patients with eGFR values >/=60 mL/min/1.73 m2 may also have CKD if evidence of persistent proteinuria is present. The original MDRD equation for estimated GFR is not valid for patients less than 18 years of age. Additional information may be found at [email or web address]. 58 POSSIBLE UROGENITAL CONTAMINATION. 59 05/06/13 LAB.TOW De[facility] by [facility] 60 OPERATION/PROCEDURE Hysteroscopy, D+C, [facility] DIAGNOSIS: "ENDOMETRIAL CURETTINGS": MILDLY DISORDERED PROLIFERATIVE ENDOMETRIUM WITHOT GLANDULAR HYPERPLASIA OR ATYPIA, VERSUS POLYP. ELSI/hunter T: 05/05 11:03 GROSS "ENDOMETRIAL CURETTINGS". The specimen is received in an appropriately labeled container. This contains 0.5 mL of pink tissue admixed with mucus. Filtered and submitted in toto within a single cassette. JOSELIN/hunter MICROSCOPIC Sections reveal cytologically bland, pseudostratified, proliferative, mitotically active epithelium having a slightly increased fyvhzy-vu-ulviylj ratio. The glands show shallow budding focally, but overall are tubular, narrow caliber, within abundant stroma. PRE OPERATIVE DIAGNOSIS Menorrhagia REVIEW CODE CODE: I ----- VALERI Mcallister MD 05/05/13 1200 ----- 61 Vitamin D deficiency has been defined by the [place] of Medicine and an Endocrine Society practice guideline as a level of serum 25-OH vitamin D less than 20 ng/mL (1,2). The Endocrine Society went on to further define vitamin D insufficiency as a level between 21 and 29 ng/mL (2). 1. IOM ([place] of Medicine). 2010. Dietary reference intakes for calcium and D. [place]: The National Academies Press. 2. Nicolas MF, Lavon NC, Jamil SANTIAGO, et al. Evaluation, treatment, and prevention of vitamin D deficiency: an Endocrine Society clinical practice guideline. JCEM. 2010; 96(7):1911-30. Performed at: [facility] Lab[address] [id number] Wood Grinder: Meeta Briceño MD, Phone: [phone] 62 Performed at: [facility] Lab[address] [id number] Wood Grinder: Valeri Reece MD, Phone: [phone] 63 No Trichomonas, yeast, or clue cells seen. This is a presumptive result. Specimens received more than 30 minutes after collection may yield false negative results. Identification of Trichomonas is made by the observation of motility, which becomes progressively diminished after 30 minutes. 64 NEGATIVE FOR CHLAMYDIA TRACHOMATIS BY DNA HYBRIDIZATION ASSAY. THIS TEST IS APPROVED FOR OCULAR AND UROGENITAL SITES ONLY. 65 NEGATIVE FOR NEISSERIA GONORRHOEAE BY DNA HYBRIDIZATION ASSAY. THIS METHOD IS APPROVED FOR UROGENITAL SITES ONLY. 66 FIRST MORNING SPECIMENS GENERALLY CONTAIN THE HIGHEST CONCENTRATION OF HCG AND ARE RECOMMENDED FOR EARLY DETECTION OF . 67 SCHEDULE IN 6 WEEKS 68 Note: Persistent reduction for 3 months or more in an eGFR <60 mL/min/1.73 m2 defines CKD. Patients with eGFR values >/=60 mL/min/1.73 m2 may also have CKD if evidence of persistent proteinuria is present. The original MDRD equation for estimated GFR is not valid for patients less than 18 years of age. Additional information may be found at [email or web address]. 69 Performed at: RN - [facility] [address] [id number] Wood Grinder: Emir Kam MD, Phone: [phone] 70 NEGATIVE FOR C. DIFFICILE TOXIN A/B. CORRELATE RESULTS WITH CLINICAL CONDITION. 71 NEGATIVE FOR CRYPTOSPORIDIUM SPECIFIC ANTIGEN 72 NEGATIVE FOR GIARDIA SPECIFIC ANTIGEN. The specimen will be held for 5 days. Additional testing may be performed upon request if the antigen tests are negative, and the patient is still symptomatic or has traveled to an endemic region. 73 SHIGA TOXIN 1 NOT DETECTED 74 SHIGA TOXIN 2 NOT DETECTED 75 Organism 1 ! NO ENTERIC PATHOGENS ISOLATED . ! ................................................... NOTE: ! INCLUDES TESTING FOR SALMONELLA, SHIGELLA, AEROMONAS, . ! PLESIOMONAS, CAMPYLOBACTER, AND E. COLI 0157:H7 . ! ................................................... . ! YERSINIA AND VIBRIO ARE NOT ROUTINELY SCREENED FOR AND . ! SHOULD BE REQUESTED SEPARATELY 76 Ordered Indirect bilirubin, added Direct Bilirubin to calculate. QUERY: @ EMR Pat ID: QUERY: @EMR Req #: 77 Ordered Indirect bilirubin, added Direct Bilirubin to calculate. QUERY: @ EMR Pat ID: QUERY: @EMR Req #: QUERY: @Not a test! Calculation only. Order BILT,BILD and IBILI QUERY: @Not a test! Calculation only. Order BILT,BILD and IBILI 78 Note: Persistent reduction for 3 months or more in an eGFR <60 mL/min/1.73 m2 defines CKD. Patients with eGFR values >/=60 mL/min/1.73 m2 may also have CKD if evidence of persistent proteinuria is present. The original MDRD equation for estimated GFR is not valid for patients less than 18 years of age. Additional information may be found at [email or web address]. 79 QUERY: @EMR Pat ID: QUERY: @EMR Req #: 80 A1c value between 5.7% and 6.4% is considered at increased risk for diabetes. A1c value greater than 6.5 % is considered essentially diagnostic for Type II diabetes. Current guidelines recommend a treatment goal of <7% for diabetic patients. This method will measure glycosylated hemoglobin variants, HbS, HbG , HbH, HbWayne, HbC, HbE, etc. Other hemoglobin- opathies may give incorrect results with this test. 81 Note: Persistent reduction for 3 months or more in an eGFR <60 mL/min/1.73 m2 defines CKD. Patients with eGFR values >/=60 mL/min/1.73 m2 may also have CKD if evidence of persistent proteinuria is present. The original MDRD equation for estimated GFR is not valid for patients less than 18 years of age. Additional information may be found at [email or web address]. 82 QUERY: @[facility] Pat ID: QUERY: @EMR Req #: 83 [facility] [place] [address], [address] [place] [address] SURGICAL PATHOLOGY REPORT Name: Nya Curran Pathology #: [id number] : 1985 (Age: 23) Sex: F Location: [facility] Soc. Sec. #: [id number] Date of Procedure: 12/17/2008 Billing # : [id number] Date Received: 12/20/2008 Requisition #: [id number] Physician(s): JONATAN MCLEAN MD Specimen(s) Received: Left shoulder Clinical Information: Left shoulder subcutaneous lesion, present for years, no major changes. 238.2. Gross Description: Specimen received in formalin and labeled with the patient' s name is a ramos larry rubbery punch of tissue measuring 0.3 cm in diameter excised to a depth of 0.2 cm. Skin surface is smooth to granular. Submitted in toto. (1 block) cf SXP/ALIDA Diagnosis: KELOID, LEFT SHOULDER. Reported: 12/21/2008 Electronic Signature lr Emir Victor MD [facility] ICD-9 Codes: 701.4 Procedures Date Code Description Status 01/21/2019 89658 Measure Blood Oxygen Level Single Determination Completed 10/01/2018 75699 Brief Emotional/Behav Assessment W/ Scoring Doc Per Completed Standard Inst 07/25/2018 49449 Brief Emotional/Behav Assessment W/ Scoring Doc Per Completed Standard Inst 06/03/2018 70874 Measure Blood Oxygen Level Single Determination Completed 07/26/2017 21921 Measure Blood Oxygen Level Single Determination Completed 07/02/2017 46251 Measure Blood Oxygen Level Single Determination Completed 07/31/2016 28239 Measure Blood Oxygen Level Single Determination Completed 04/28/2015 61387 Electrocardiogram Complete Completed 02/25/2012 60048 Measure Blood Oxygen Level Single Determination Completed 11/28/2011 71406 Measure Blood Oxygen Level Single Determination Completed 11/28/2011 47771 Airway Inhalation Treatment Completed 11/26/2011 10754 Measure Blood Oxygen Level Single Determination Completed 07/04/2011 90773 Omt 3-4 Body Regions Completed 04/16/2011 41905 Measure Blood Oxygen Level Single Determination Completed 01/09/2011 90957 Electrocardiogram Complete Completed 12/17/2008 99375 Excise Benign Lesion <.6CM Trunk/Arm/Leg Completed 12/17/2008 43330 Biopsy Skin Lesion Single Completed Encounters Type Date Location Provider Dx Diagnosis Office Visit 11/17/2018 [facility] Allyssa Sam PA F41.1 Generalized anxiety 8:00a disorder Z68.39 Body mass index (BMI) 39.0-39.9, adult Office Visit 10/29/2018 8:00a Allyssa Patten PA F41.1 Generalized anxiety disorder Z68.38 Body mass index (BMI) 38.0-38.9, adult Office Visit 10/01/2018 8:00a Allyssa Patten PA F41.1 Generalized anxiety disorder Z68.38 Body mass index (BMI) 38.0-38.9, adult Office Visit 09/17/2018 9:30a Allyssa Patten PA F41.1 Generalized anxiety disorder Z68.38 Body mass index (BMI) 38.0-38.9, adult Office Visit 09/03/2018 10:30a [facility] Allyssa Sam PA F41.1 Generalized anxiety disorder Z68.38 Body mass index (BMI) 38.0-38.9, adult Office Visit 08/07/2018 11:00a [facility] Allyssa Sam PA F41.1 Generalized anxiety disorder Z68.38 Body mass index (BMI) 38.0-38.9, adult Office Visit 07/25/2018 3:00p [facility] Allyssa Sam PA Z00.00 Encntr for general adult medical exam w/o abnormal findings Z68.37 Body mass index (BMI) 37.0-37.9, adult Z13.89 Encounter for screening for other disorder Z13.31 Encounter for screening for depression Office Visit 06/03/2018 11:30a [facility] Asmita Khan NP R05 Cough Z68.38 Body mass index (BMI) 38.0-38.9, adult Office Visit 07/26/2017 3:15p [facility] Allyssa aSm PA J06.9 Acute upper respiratory infection, unspecified Office Visit 07/02/2017 9:30a [facility] Jonatan Mclean DO J06.9 Acute upper respiratory infection, unspecified B34.9 Viral infection, unspecified Office Visit 04/17/2017 9:30a [facility] Jonatan Mclean DO F43.23 Adjustment disorder with mixed anxiety and depressed mood Office Visit 10/09/2016 8:00a [facility] Jonatan Mclean DO K64.8 Other hemorrhoids M25.542 Pain in joints of LEFT hand Office Visit 08/29/2016 11:15a [facility] Jonatan Mclean DO Z98.84 Bariatric surgery status F43.23 Adjustment disorder with mixed anxiety and depressed mood E53.8 Deficiency of other specified B group vitamins D86.9 Sarcoidosis, unspecified E66.9 Obesity, unspecified E55.9 Vitamin D deficiency, unspecified J45.20 Mild intermittent asthma, uncomplicated I10 Essential (primary) hypertension Office Visit 07/31/2016 2:00p [facility] Asmita Khan NP R05 Cough J02.9 Acute pharyngitis, unspecified Office Visit 02/28/2016 3:00p Jonatan Goldberg DO F43.23 Adjustment disorder with mixed anxiety and depressed mood D86.9 Sarcoidosis, unspecified E66.9 Obesity, unspecified E55.9 Vitamin D deficiency, unspecified J45.20 Mild intermittent asthma, uncomplicated I10 Essential (primary) hypertension Office Visit 11/28/2015 2:45p Jonatan Goldberg DO R21 Rash and other nonspecific skin eruption F43.23 Adjustment disorder with mixed anxiety and depressed mood Office Visit 09/19/2015 8:15a Jonatan Goldberg DO E66.9 Obesity, unspecified D86.9 Sarcoidosis, unspecified Z98.84 Bariatric surgery status F43.23 Adjustment disorder with mixed anxiety and depressed mood I10 Essential (primary) hypertension J45.20 Mild intermittent asthma, uncomplicated Office Visit 08/30/2015 9:00a Jonatan Goldberg, Z01.818 Encounter for other DO preprocedural examination E66.9 Obesity, unspecified D86.9 Sarcoidosis, unspecified Office Visit 08/05/2015 9:30a Jonatan Goldberg DO E66.9 Obesity, unspecified D86.9 Sarcoidosis, unspecified Office Visit 07/08/2015 8:45a Jonatan Goldberg DO E66.9 Obesity, unspecified D86.9 Sarcoidosis, unspecified Office Visit 05/31/2015 9:30a Jonatan Goldberg DO E66.9 Obesity, unspecified M79.606 Pain in leg, unspecified Office Visit 05/05/2015 9:00a Jonatan Goldberg DO 278.00 Obesity Unspec 729.5 Pain In Limb 782.3 Edema Office Visit 04/28/2015 10:00a Jonatan Goldberg DO 786.59 Pain Chest Other 782.3 Edema 729.5 Pain In Limb Office Visit 04/21/2015 2:30p Jonatan Goldberg DO 782.3 Edema Office Visit 04/05/2015 9:45a Jonatan Goldberg DO 278.00 Obesity Unspec 305.1 Tobacco Use Disorder Office Visit 01/10/2015 1:30p [facility] Jonatan Mclean DO 278.00 Obesity Unspec Office Visit 11/25/2014 1:00p [facility] Tory Purdy PA 787.91 Diarrhea Office Visit 09/14/2014 4:00p [facility] Jonatan Mclean DO 466.0 Bronchitis Acute 780.79 Malaise And Fatigue Other Plan of Treatment Future Appointment(s):01/29/2019 8:00 am - Allyssa Sam PA at [facility]2018 3:30 pm - Allyssa Sam PA at [facility]01/21/2019 - Allyssa Sam PAJ01.90 Acute sinusitis, unspecifiedNew Medication:Amoxicillin/Clavulanate Potassium 875-125 mg - 1 by mouth twice a day x 10 daysComments:With duration of sinus pressure, suspect bacterial sinusitisPush fluidsTylenol/motrin as needed for fever/painAugmentin as aboveSinus rinse as neededCall with any questions or concernsFollow up:PrnZ68.38 Body mass index (BMI) 38.0-38.9, adult
[2019-02-18 13:01] VITALS: BP 120/77
[2019-02-18] MEDS ORDERED: predniSONE TAB* 20 MG PO ONE (13:16)
--- NOTE | 2019-02-18 13:18 | UC ---
Respiratory Complaint HPI - HPI Summary HPI Summary: 34-year-old female comes in with a chief complaint of upper respiratory tract infection symptoms. She's been sick for about 5 days. She has a lot of chest congestion and she's wheezing. She does have a history of asthma. Typically she uses her rescue inhaler only about once a month. Since she's been ill she' s been using it on a regular basis with very little relief. Activity makes the shortness of breath worse. She's also been having fevers. She had a sore throat initially but that's improve now. - History of Current Complaint Chief Complaint: UCGeneralIllness Stated Complaint: FEVER,CHEST CONGESTION Time Seen by Provider: 02/18/19 12:47 Hx Last Menstrual Period: uterine ablation Pain Intensity: 0 - Allergies/Home Medications Allergies/Adverse Reactions: Allergies Allergy/AdvReac Type Severity Reaction Status Date / Time Adhesive Tape Allergy Hives Verified 02/18/19 12:52 Iodinated Contrast- Oral and Allergy Hives Verified 02/18/19 12:52 IV Dye Home Medications: Home Medications ALPRAZolam TAB* [Xanax TAB*] 0.25 mg PO Q6H PRN 02/18/19 [History Confirmed ] Acetaminophen [Tylenol Extra Strength] 500 mg PO ONCE PRN 02/18/19 [History Confirmed 02/18/19] Albuterol HFA INHALER* [Ventolin HFA Inhaler*] 1 puff INH Q4H PRN 02/18/19 [ History Confirmed 02/18/19] Calcium Citrate TAB* [Citracal TAB*] 1,000 mg PO BID 02/18/19 [History Confirmed 02/18/19] Cholecalciferol (Vitamin D3) [Vitamin D3] 2,000 unit PO DAILY 02/18/19 [History Confirmed 02/18/19] Cyanocobalamin TAB* [Vitamin B12 TAB*] 500 mcg PO DAILY 02/18/19 [History Confirmed 02/18/19] Multivitamins/Minerals TAB* [Theragran/minerals TAB*] 1 tab PO DAILY 02/18/19 [ History Confirmed 02/18/19] hydrOXYzine HCL TAB* [Atarax 25 MG TAB*] 25 mg PO BEDTIME PRN 02/18/19 [History Confirmed 02/18/19] PMH/Surg Hx/FS Hx/Imm Hx Previously Healthy: Yes Respiratory History: Asthma Psychological History: Anxiety - Surgical History Surgical History: Yes Surgery Procedure, Year, and Place: UTERINE ABALATION. [facility] - Social History Alcohol Use: Occasionally Substance Use Type: None Smoking Status (MU): Current Some Day Smoker Type: Cigarettes Review of Systems All Other Systems Reviewed And Are Negative: Yes Constitutional: Positive: Fever Skin: Positive: Negative Eyes: Positive: Negative ENT: Positive: Sore Throat, Nasal Discharge Respiratory: Positive: Shortness Of Breath, Cough, Other - SEE HPI Cardiovascular: Positive: Negative Gastrointestinal: Positive: Negative Motor: Positive: Negative Neurovascular: Positive: Negative Musculoskeletal: Positive: Negative Neurological: Positive: Negative Psychological: Positive: Negative Is Patient Immunocompromised?: No Physical Exam Triage Information Reviewed: Yes Appearance: No Pain Distress, Well-Nourished, Ill-Appearing - MILD Vital Signs: Initial Vital Signs Temp 98.9 F 02/18/19 12:55 Pulse 84 02/18/19 12:55 Resp 17 02/18/19 12:55 BP 120/77 02/18/19 12:55 Pulse Ox 96 02/18/19 12:55 Vital Signs Reviewed: Yes Eye Exam: Normal Eyes: Positive: Conjunctiva Clear ENT: Positive: Pharyngeal erythema, Nasal congestion, TMs normal Neck: Positive: Supple Respiratory: Positive: No respiratory distress, Wheezing - B/L Cardiovascular: Positive: RRR Musculoskeletal Exam: Normal Musculoskeletal: Positive: Strength Intact, ROM Intact Neurological: Positive: Alert, Muscle Tone Normal Psychological Exam: Normal Psychological: Positive: Age Appropriate Behavior Skin Exam: Normal Respiratory Course/Dx - Course Course Of Treatment: Patient Name: THALIA SANTOS Medical Record#: [id number] Ordering Physician: iRley Patel MD Acct.#: [id number] : 1985 Age: 34 Sex: F Location: [facility] [place] Exam Date: 02/18/19 1313 ADM Status: REG ER Order Information: CHEST PA LAT 2 S Accession Number: [id number] CPT: 91418 HISTORY: SOB,WHEEZING COMPARISONS: April 26, 2015 VIEWS: 4: Frontal dual-energy and lateral views of the chest. FINDINGS: CARDIOMEDIASTINAL SILHOUETTE: The cardiomediastinal silhouette is normal. SAHIL: The sahil are normal. PLEURA: The costophrenic angles are sharp. No pleural abnormalities are noted. LUNG PARENCHYMA: The lungs are clear. ABDOMEN: The upper abdomen is clear. There is no subphrenic gas. BONES AND SOFT TISSUES: No bone or soft tissue abnormalities are noted. OTHER: None. IMPRESSION: NO ACTIVE CARDIOPULMONARY DISEASE. <Electronically signed by Ronnell Walsh MD in OV> 02/18/19 1324 I discussed the x-ray results with the patient. The plan is to treat with Louie azithromycin due to the fevers and the worsening of her asthma. Also will treat with prednisone 40 mg a day for 5 days. Patient has an albuterol inhaler which she'll continue to use. I let her know if she got worse she needs to be reevaluated in the emergency department. - Differential Dx/Diagnosis Provider Diagnosis: Bronchitis, Asthma Discharge - Sign-Out/Discharge Documenting (check all that apply): Patient Departure All imaging exams completed and their final reports reviewed: Yes - Discharge Plan Condition: Stable Disposition: HOME Prescriptions: Azithromyxin CHICO (NF) [Z-Chico (Zithromax) 250 mg tabs #6] 2 tab PO .TODAY, THEN 1 DAILY #6 tab predniSONE TAB* [Deltasone 20 MG TAB*] 40 mg PO DAILY #80 tab Patient Education Materials: Asthma (ED), Acute Bronchitis (ED) Referrals: Allyssa Sam PA [Primary Care Provider] - Additional Instructions: FOLLOW UP WITH YOUR DOCTOR IF NOT COMPLETELY IMPROVED. GO TO THE EMERGENCY DEPARTMENT IF YOUR CONDITION WORSENS OR ANY QUESTIONS OR CONCERNS. - Billing Disposition and Condition Condition: STABLE Disposition: Home
[2019-02-18] MEDS ORDERED: Albuterol 2.5 MG/3 ML NEB.SOL* (0.083%) INH ONE (13:43)
== END 2019-02-18 14:03 | disposition home or self-care (01) ==
LOC: UCCORT 12:29
DX: J45.909 Unspecified asthma, uncomplicated (principal); F41.9 Anxiety disorder, unspecified; F17.210 Nicotine dependence, cigarettes, uncomplicated
CPT/HCPCS: 71046; 99212; G0463; J7512

== ENCOUNTER 2019-10-19 12:06 | Emergency (ER) | payer BC ==
[2019-10-19 12:44] VITALS: BP 127/77
--- NOTE | 2019-10-19 12:59 | UC ---
FLU HPI - HPI Summary HPI Summary: 34 year old f with flu like illness. "I have been run down every since this past ... " Initially started with a sore throat four days ago but has since resolved. Shortness of breath, myalgias and fatigue for three days. Fever (tmax 102) for two days. Congestion and mostly nonproductive cough today. - History of Current Complaint Chief Complaint: UCRespiratory Stated Complaint: FLU SYMPTOMS Time Seen by Provider: 10/19/19 12:55 Hx Obtained From: Patient Hx Last Menstrual Period: s/p Uterine Ablation 2012 Onset/Duration: Gradual Onset Pain Intensity: 6 - Allergy/Home Medications Allergies/Adverse Reactions: Allergies Allergy/AdvReac Type Severity Reaction Status Date / Time Adhesive Tape Allergy Hives Verified 10/19/19 12:40 Iodinated Contrast Media Allergy Hives Verified 10/19/19 12:40 [Iodinated Contrast- Oral and IV Dye] Home Medications: Home Medications ALPRAZolam TAB* [Xanax TAB*] 0.25 mg PO Q6H PRN 02/18/19 [History Confirmed ] Acetaminophen [Tylenol Extra Strength] 500 mg PO ONCE PRN 02/18/19 [History Confirmed 10/19/19] Albuterol HFA INHALER* [Ventolin HFA Inhaler*] 1 puff INH Q4H PRN 02/18/19 [ History Confirmed 10/19/19] Calcium Citrate TAB* [Citracal TAB*] 1,000 mg PO BID 02/18/19 [History Confirmed 10/19/19] Cholecalciferol (Vitamin D3) [Vitamin D3] 2,000 unit PO DAILY 02/18/19 [History Confirmed 10/19/19] Cyanocobalamin TAB* [Vitamin B12 TAB*] 500 mcg PO DAILY 02/18/19 [History Confirmed 10/19/19] Multivitamins/Minerals TAB* [Theragran/minerals TAB*] 1 tab PO DAILY 02/18/19 [ History Confirmed 10/19/19] hydrOXYzine HCL TAB* [Atarax 25 MG TAB*] 25 mg PO BEDTIME PRN 02/18/19 [History Confirmed 10/19/19] Anxiety Medication 1 tab PO BEDTIME 10/19/19 [History] Benzonatate CAP* [Tessalon 100 MG CAP*] 100 mg PO TID PRN #20 cap 10/19/19 [Rx] PMH/Surg Hx/FS Hx/Imm Hx Previously Healthy: Yes Respiratory History: Asthma Psychological History: Anxiety - Surgical History Surgical History: Yes Surgery Procedure, Year, and Place: UTERINE ABALATION. [facility] appy - Family History Known Family History: Positive: Other - asthma - Social History Occupation: Employed Full-time Lives: With Family Alcohol Use: Occasionally Substance Use Type: None Smoking Status (MU): Never Smoked Tobacco Type: Cigarettes Review of Systems All Other Systems Reviewed And Are Negative: Yes Constitutional: Positive: Chills, Fatigue ENT: Positive: Ear Ache, Nasal Discharge, Sinus Congestion, Sinus Pain/ Tenderness Respiratory: Positive: Cough Musculoskeletal: Positive: Myalgia Neurological/Mental Status: Positive: Headache Is Patient Immunocompromised?: No Physical Exam Triage Information Reviewed: Yes Appearance: No Pain Distress Vital Signs: Initial Vital Signs Temp 98.9 F 10/19/19 12:38 Pulse 85 10/19/19 12:38 Resp 18 10/19/19 12:38 BP 127/77 10/19/19 12:38 Pulse Ox 100 10/19/19 12:38 Vital Signs Reviewed: Yes Eye Exam: Normal ENT Exam: Normal Dental Exam: Normal Neck exam: Normal Neck: Positive: 1 Respiratory Exam: Normal Cardiovascular Exam: Normal Abdominal Exam: Normal Musculoskeletal Exam: Normal Neurological Exam: Normal Psychological Exam: Normal Skin Exam: Normal Flu Course/Dx - Course Course Of Treatment: neg flu. she has inhaler at home. vitals stable and no respiratory distress. advised to not smoke anymore and given tessalon - Differential Dx/Diagnosis Differential Diagnosis/HQI/PQRI: Influenza, Pneumonia, Upper Respiratory Infection Provider Diagnosis: Viral respiratory illness Discharge ED - Sign-Out/Discharge Documenting (check all that apply): Patient Departure All imaging exams completed and their final reports reviewed: No Studies - Discharge Plan Condition: Good Disposition: HOME Prescriptions: Benzonatate CAP* [Tessalon 100 MG CAP*] 100 mg PO TID PRN #20 cap PRN Reason: Cough Patient Education Materials: Viral Syndrome (ED) Forms: *Work Release Referrals: Allyssa Sam PA [Primary Care Provider] - 3 Days - Billing Disposition and Condition Condition: GOOD Disposition: Home
[2019-10-19 13:15] LABS: Influenza A Molecular Negative (Negative); Influenza B Molecular Negative (Negative)
== END 2019-10-19 13:33 | disposition home or self-care (01) ==
LOC: UCCORT 12:06
DX: B34.9 Viral infection, unspecified (principal); J45.909 Unspecified asthma, uncomplicated; R05 Cough; M79.10 Myalgia, unspecified site; R53.83 Other fatigue; H92.09 Otalgia, unspecified ear; R09.89 Other specified symptoms and signs involving the circulatory and respiratory systems; R51 Headache; F41.9 Anxiety disorder, unspecified; Z79.899 Other long term (current) drug therapy; Z91.09 Other allergy status, other than to drugs and biological substances; Z91.041 Radiographic dye allergy status
CPT/HCPCS: 99212; G0463